=== PATIENT | male | born 1965 | race Caucasian/White ===

== ENCOUNTER 2024-06-30 09:49 | Inpatient (IN) ==
[2024-06-30] MEDS: SODIUM CHLORIDE 0.9% 1,000 ML IV ONE (10:37)
[2024-06-30 10:39] LABS: Base Excess VBG 3.1 mEq/L; HCO3 VBG 30 mmol/L; Oxygen Saturation VBG < 60.0 %; PCO2 VBG 51 mmHg (38-50); PO2 VBG 27 mmHg; pH VBG 7.37 (7.36-7.41)
[2024-06-30] MEDS: ACETAMINOPHEN 1,000 MG/100 ML VIAL IV STA (10:39)
[2024-06-30 10:57] LABS: Basophils # (auto) 0.02 K/uL (0.00-0.20); Basophils % (auto) 0.5 %; Eosinophils # (auto) 0.01 K/uL (0.00-0.50); Eosinophils % (auto) 0.2 %; Hematocrit (blood only) 52.5 % (42.0-52.0); Hemoglobin 17.8 g/dl (14.0-18.0); Immature Granulocytes # (auto) 0.02 K/uL (0.01-0.20); Immature Granulocytes % (auto) 0.5 %; Lymphocytes # (auto) 0.45 K/uL (1.20-3.40); Lymphocytes % (auto) 10.6 %; Mean Corpuscular Hemoglobin 30.2 pg (25.0-34.0); Mean Corpuscular Hgb Conc 33.9 g/dL (32.0-36.0); Mean Platelet Volume 11.3 fL (9.4-12.4); Monocytes % (auto) 14.2 %; Neutrophils # (auto) 3.13 K/uL (1.40-6.50); Platelet Count 219 K/uL (130-400); RDW Standard Deviation 48.8 fL (36.4-46.3); White Blood Count 4.23 K/ul (4.8-10.8)
--- NOTE | 2024-06-30 11:07 | Emergency Department Note ---
Impression & Plan Amyloid heart disease, Heart failure with preserved ejection fraction, Pericardial effusion, Nausea and vomiting, Hypotension, Tachycardia ED Provider Note NAME: KAREN BISHOP AGE: 59 SEX: M : 1965 ARRIVES VIA: Walk-In INFORMANT: [Patient][, ] ED PROVIDER(S): [Ailyn Raya MD] CHIEF COMPLAINT: Abdominal pain, vomiting, confusion HPI: This is a 59-year-old male with history of amyloid heart disease, heart failure presenting for weakness, confusion. Patient started chemotherapy and has had 3 previous rounds. Most recently had his chemotherapy on 06/28, 2 days ago. Has been increasingly weak. Over the course of the night has had 9/10 abdominal pain in his midepigastrium. Reports no chest pain or shortness of breath. Currently with the who states that he is been somewhat confused, lethargic and forgetting based things like his birthday. He is not hallucinating. Otherwise has had nausea with vomiting. Currently provides all history as patient is fatigued. ROS: See above HPI for pertinent positives & negatives. A total of [10] systems reviewed and were otherwise negative. PAST MEDICAL HISTORY: [See Below] PAST SURGICAL HISTORY: [See Below] FAMILY HISTORY: [See Below] SOCIAL HISTORY: [See Below] HOME MEDICATIONS: [See Below] ALLERGIES: [See Below] VITALS: See Below PHYSICAL EXAMINATION: General: Uncomfortable, unwell appearing, weak Head: Normocephalic and atraumatic Eyes: Normal inspection, extraocular muscles intact Ear, nose, throat: Normal external exam Neck: Normal range of motion Respiratory: lungs clear to auscultation bilaterally Cardiovascular: Regular rate/rhythm, no murmur GI: Distended, exquisitely tender in the epigastrium Extremities: nontender, moves all extremities Neuro: The patient awake and alert, appropriately conversive, no focal deficits, symmetric faces Skin: Warm, dry, and intact MEDICAL DECISION MAKING: This is a 59-year-old male with a treatment with heart disease, heart failure presenting for weakness and confusion. Will do screening workup to assess for sepsis, pancreatitis, internal process such as appendicitis, cholecystitis, SBO, gastroenteritis. -ECG independently interpreted by me with sinus tachycardia rate of 120, left axis deviation, [normal [place]], [normal QRS], [normal QTc], no ST segment elevations consistent with STEMI criteria, T wave inversion the lateral leads -Blood work returns with no subacute leukocytosis. No anemia. VBG is 7.37/51. Electrolytes fairly within normal limits. Lactic acid 2.1. -Troponin elevated at 131.5 -Patient given fluids, 1 L however will be cautious as patient does have body wide anasarca on CT as below -CT chest, abdomen/pelvis reveals moderate bilateral pleural effusions with lower lobe atelectasis, as well as moderate pericardial effusion. Anasarca. Otherwise urinary bladder wall thickening, nonspecific -As patient is tachycardic, will give ceftriaxone while awaiting urine -Patient required mission at this time for his tachycardia, weakness, anasarca, confusion -Discussed care with Dr. Blackwood for admission Differential diagnosis: Sepsis, pneumonia, dehydration, tumor lysis syndrome, URI Independent History obtained from: Diagnostics interpreted by me: ECG: See above Cardiac Monitoring: An order was placed for continuous cardiac monitoring. The monitor shows a rate of 105 with sinus rhythm. Past Med/Surg History Problem List (Updated 06/30/24 @ 17:36 by Ailyn Raya MD) Tachycardia (Acute) Hypotension (Acute) Nausea and vomiting (Acute) Pericardial effusion (Acute) Heart failure with preserved ejection fraction (Acute) Amyloid heart disease (Acute) Obstructive sleep apnea Hypertension Gout Heart disease Paraproteinemia Pleural effusion Abnormal PFT Pulmonary nodule Medical History Adrenal nodule Nephrolithiasis Surgical History Hx of biopsy (05/29/24) H/O knee surgery (~1999) H/O cardiac catheterization History of thoracentesis Family History Grandfather Cancer Aunt Cancer Diabetes Uncle Cancer Diabetes Father Cancer Hypertension Mother Hypertension Stroke Denies family history of Kidney disease Social History Smoking Status: Former smoker Hx Alcohol Use: Yes Alcohol type: beer Alcohol Intake Frequency: Monthly or Less Hx Substance Use: No Preferred Language: Citizen Of [place] Communication Ability: Effective Web Interface Developer Required: No Beliefs That Will Affect Care: None marital status: Current Living Situation: Spouse current occupational status: employed 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 Feels Safe at Home: Yes Diet: regular during the past year weight has: decreased > 10 lbs Allergies Allergies Allergy/AdvReac Type Severity Reaction Status Date / Time spironolactone AdvReac Swelling Verified 06/19/24 08:46 of Lip/Tongue/Throat Home Meds Home Medications Medication Instructions Recorded Confirmed potassium chloride 20 mEq 40 meq PO BID 05/08/24 06/30/24 tablet,extended release(part/cryst) allopurinol 100 mg tablet 300 mg PO DAILY 06/19/24 06/30/24 empagliflozin 10 mg tablet 10 mg PO DAILY 06/19/24 06/30/24 (Jardiance) eplerenone 50 mg tablet 50 mg PO DAILY 06/19/24 06/30/24 omeprazole 20 mg capsule,delayed 20 mg PO DAILY Heartburn 06/19/24 06/30/24 release torsemide 100 mg tablet 100 mg PO DAILY 06/19/24 06/30/24 diphenoxylate-atropine 2.5 1 tab PO Q6H PRN Diarrhea 06/30/24 06/30/24 mg-0.025 mg tablet valacyclovir 500 mg tablet 500 mg PO BID 06/30/24 06/30/24 Results & Data (ED) Vital Signs Vital Signs - 24 hr 06/30/24 09:50 06/30/24 09:56 06/30/24 10:00 Temperature 36.5 C Temperature Source Temporal Artery Scan Pulse Rate 127 H 113 H Pulse Rate from SpO2 Sensor Pulse Rhythm Regular Respiratory Rate 18 12 Blood Pressure 99/69 L 110/82 Blood Pressure Mean 79 90 Pulse Oximetry 97 94 Oxygen Delivery Method Room Air Sepsis Recent Fever Within 48 Hours No Sepsis New/Unexplained Change in Mental Status N/A Sepsis Action Taken by Nursing Physician Notified 06/30/24 10:03 06/30/24 10:31 06/30/24 11:57 Temperature Temperature Source Pulse Rate 105 H 109 H 117 H Pulse Rate from SpO2 Sensor 121 H 116 H Pulse Rhythm Respiratory Rate 16 21 Blood Pressure Blood Pressure Mean Pulse Oximetry 97 94 Oxygen Delivery Method Room Air Room Air Sepsis Recent Fever Within 48 Hours Sepsis New/Unexplained Change in Mental Status Sepsis Action Taken by Nursing 06/30/24 12:00 06/30/24 13:00 06/30/24 13:03 Temperature Temperature Source Pulse Rate 111 H Pulse Rate from SpO2 Sensor 111 H Pulse Rhythm Respiratory Rate 14 Blood Pressure 96/65 L 87/73 L Blood Pressure Mean 72 78 Pulse Oximetry 92 Oxygen Delivery Method Room Air Sepsis Recent Fever Within 48 Hours Sepsis New/Unexplained Change in Mental Status Sepsis Action Taken by Nursing Laboratory Data 06/30/24 10:20 06/30/24 10:20 Lab Results 06/30/24 06/30/24 06/30/24 Range/Units 10:18 10:20 10:25 WBC 4.23 L (4.8-10.8) K/ul RBC 5.90 (4.70-6.10) M/uL Hgb 17.8 (14.0-18.0) g/dl Hct 52.5 H (42.0-52.0) % MCV 89.0 (80.0-100.0) fL MCH 30.2 (25.0-34.0) pg MCHC 33.9 (32.0-36.0) g/dL RDW Std Deviation 48.8 H (36.4-46.3) fL RDW Coeff of Raul 16.0 H (11.5-14.5) % Plt Count 219 (130-400) K/uL MPV 11.3 (9.4-12.4) fL Immature Gran % (Auto) 0.5 % Neut % (Auto) 74.0 % Lymph % (Auto) 10.6 % Union % (Auto) 14.2 % Eos % (Auto) 0.2 % Baso % (Auto) 0.5 % Neut # (Auto) 3.13 (1.40-6.50) K/uL Lymph # (Auto) 0.45 L (1.20-3.40) K/uL Union # (Auto) 0.60 H (0.11-0.59) K/uL Eos # (Auto) 0.01 (0.00-0.50) K/uL Baso # (Auto) 0.02 (0.00-0.20) K/uL Immature Gran # (Auto) 0.02 (0.01-0.20) K/uL VBG pH (7.36-7.41) VBG pCO2 (38-50) mmHg VBG pO2 mmHg VBG HCO3 mmol/L VBG O2 Saturation % VBG Base Excess mEq/L Sodium 135 L (136-145) mmol/L Potassium 4.4 (3.5-5.1) mmol/L Chloride 96 L (98-107) mmol/L Carbon Dioxide 30 (21-32) mmol/L Anion Gap 9 (3-11) BUN 43 H (6-23) mg/dl Creatinine 1.28 (0.6-1.4) mg/dl Est Cr Clr Drug Dosing Not Reportable eGFR 64.47 BUN/Creatinine Ratio 33.6 H (10-20) Glucose 121 H (70-99(Fasting)) mg/dl Lactate 2.1 H* (0.4-2.0) mmol/L Uric Acid 4.7 (2.6-7.2) mg/dl Calcium 8.9 (8.6-10.3) mg/dl Magnesium 1.7 (1.7-2.4) mg/dl Total Bilirubin 0.6 (0.2-1.0) mg/dl AST 15 (13-39) U/L ALT 15 (7-52) U/L Alkaline Phosphatase 98 (34-104) U/L Troponin I High Sens 131.5 H* (0-20) pg/ml B-Natriuretic Peptide 757 H (0-100) pg/ml Total Protein 5.3 L (6.0-8.3) gm/dl Albumin 3.2 L (3.4-5.0) gm/dl Globulin 2.1 L (2.5-4.0) gm/dl Albumin/Globulin Ratio 1.5 (0.9-2) Lipase 37 (11-82) U/L Procalcitonin 0.52 H (0-0.5) ng/ml 06/30/24 06/30/24 Range/Units 10:26 12:07 WBC (4.8-10.8) K/ul RBC (4.70-6.10) M/uL Hgb (14.0-18.0) g/dl Hct (42.0-52.0) % MCV (80.0-100.0) fL MCH (25.0-34.0) pg MCHC (32.0-36.0) g/dL RDW Std Deviation (36.4-46.3) fL RDW Coeff of Raul (11.5-14.5) % Plt Count (130-400) K/uL MPV (9.4-12.4) fL Immature Gran % (Auto) % Neut % (Auto) % Lymph % (Auto) % Union % (Auto) % Eos % (Auto) % Baso % (Auto) % Neut # (Auto) (1.40-6.50) K/uL Lymph # (Auto) (1.20-3.40) K/uL Union # (Auto) (0.11-0.59) K/uL Eos # (Auto) (0.00-0.50) K/uL Baso # (Auto) (0.00-0.20) K/uL Immature Gran # (Auto) (0.01-0.20) K/uL VBG pH 7.37 (7.36-7.41) VBG pCO2 51 H (38-50) mmHg VBG pO2 27 mmHg VBG HCO3 30 mmol/L VBG O2 Saturation < 60.0 % VBG Base Excess 3.1 mEq/L Sodium (136-145) mmol/L Potassium (3.5-5.1) mmol/L Chloride (98-107) mmol/L Carbon Dioxide (21-32) mmol/L Anion Gap (3-11) BUN (6-23) mg/dl Creatinine (0.6-1.4) mg/dl Est Cr Clr Drug Dosing eGFR BUN/Creatinine Ratio (10-20) Glucose (70-99(Fasting)) mg/dl Lactate (0.4-2.0) mmol/L Uric Acid (2.6-7.2) mg/dl Calcium (8.6-10.3) mg/dl Magnesium (1.7-2.4) mg/dl Total Bilirubin (0.2-1.0) mg/dl AST (13-39) U/L ALT (7-52) U/L Alkaline Phosphatase (34-104) U/L Troponin I High Sens 112.2 H* (0-20) pg/ml B-Natriuretic Peptide (0-100) pg/ml Total Protein (6.0-8.3) gm/dl Albumin (3.4-5.0) gm/dl Globulin (2.5-4.0) gm/dl Albumin/Globulin Ratio (0.9-2) Lipase (11-82) U/L Procalcitonin (0-0.5) ng/ml Administered Medications Discontinued Medications Hydromorphone HCl (Hydromorphone Inj 0.5 Mg/0.5 Ml Syr) 0.5 mg IV NOW STA Stop: 06/30/24 11:53 Last Admin: 06/30/24 12:02 Dose: 0.5 mg Documented By: ROSEANNE Sodium Chloride (Nss) 1,000 mls @ 999 mls/hr IV .Q1H1M ONE Stop: 06/30/24 10:58 Last Infusion: 06/30/24 14:41 Dose: Infused Documented By: Admin: 06/30/24 10:37 Dose: 999 mls/hr Documented By: TOMMY Acetaminophen (Ofirmev) 1,000 mg in 100 mls @ 400 mls/hr IV NOW STA Stop: 06/30/24 10:38 Last Infusion: 06/30/24 11:22 Dose: Infused Documented By: Admin: 06/30/24 10:39 Dose: 400 mls/hr Documented By: TOMMY Ceftriaxone Sodium (Rocephin) 2,000 mg in 50 mls @ 100 mls/hr IV NOW STA Stop: 06/30/24 13:48 Last Infusion: 06/30/24 15:07 Dose: Infused Documented By: Admin: 06/30/24 14:26 Dose: 100 mls/hr Documented By: TOMMY Pantoprazole Sodium (Protonix) 40 mg in 10 mls @ 5 mls/min IV NOW ONE Stop: 06/30/24 13:57 Last Admin: 06/30/24 14:26 Dose: 5 mls/min Documented By: TOMMY Famotidine (Pepcid 20mg Iv Push) 20 mg in 5 mls @ 2.5 mls/min IV NOW STA Stop: 06/30/24 13:57 Last Admin: 06/30/24 14:26 Dose: 2.5 mls/min Documented By: TOMMY Ioversol (Optiray 320 100ml) 94 ml IV ONCE ONE Stop: 06/30/24 11:39 Last Admin: 06/30/24 11:40 Dose: 94 ml Documented By: DARRIN Miscellaneous (Patient's Height &/Or Weight Needed) 1 each N/A Q2H STA Stop: 06/30/24 16:21 Last Admin: 06/30/24 16:23 Dose: 1 each Documented By: VIOLET Ondansetron HCl (Ondansetron Inj 2 Mg/Ml 2 Ml Vial) 4 mg IV NOW STA Stop: 06/30/24 11:52 Last Admin: 06/30/24 12:02 Dose: 4 mg Documented By: ROSEANNE Ondansetron HCl (Ondansetron Inj 2 Mg/Ml 2 Ml Vial) 4 mg IV NOW STA Stop: 06/30/24 13:59 Last Admin: 06/30/24 14:26 Dose: 4 mg Documented By: TOMMY Imaging Data Radiologist's Impression: Abdomen/Pelvis CT 06/30/24 10:[address] WITH IV CONTRAST HISTORY: Acute nausea and vomiting mid abd pain, on chemo, confusion TECHNIQUE: Multiaxial CT images of the abdomen and pelvis were performed following the IV administration of 94 cc of Optiray, A dose lowering technique was utilized adhering to the principles of ALARA. COMPARISON STUDY: Chest CT of same day, CT abdomen 05/28/2024, CT chest 03/07/2024 FINDINGS: Abnormal enhancement and thickening of the left ventricular myocardium. Moderate-sized pericardial effusion measures up to 2 cm. Moderate layering pleural effusions with dependent bibasilar consolidation. Intralobular septal thickening. No pneumatosis or pneumoperitoneum. Heterogeneous enhancement of the spleen. Unremarkable pancreas. Left adrenal gland is normal. Chronic nodular thickening of the right adrenal gland measuring up to 2.3 cm with unchanged hyperdensities/calcifications. There are a few hepatic cysts noted. Patent portal vein. No hydronephrosis. Exophytic cyst of the superior pole right kidney. Decompressed bladder with wall thickening. Prostatomegaly. Atherosclerosis of the aorta without aneurysm. Nonspecific distal esophageal wall thickening. Anasarca with small volume of abdominopelvic ascites. Colonic diverticulosis with moderate fecal retention. Normal appendix. Mesenteric lymphadenopathy includes a 2.2 x 1.6 cm lymph node on image 199. No acute fracture. 2 cm fluid attenuating focus in the subcutaneous tissues of the anterior abdominal wall on image 321 may represent a sebaceous cyst. IMPRESSION: 1. Abnormal appearance of the myocardium compatible with the patient's known cardiac amyloidosis. 2. Moderate pericardial and pleural effusions with pulmonary edema, bibasilar atelectasis, anasarca with trace abdominopelvic ascites. 3. Nonspecific mesenteric lymphadenopathy. 4. Nondilated fluid-filled loops of small bowel are noted. No bowel obstruction or bowel wall thickening. 5. Nonspecific heterogeneous enhancement of the spleen. 6. Nonspecific urinary bladder wall thickening. Correlate with urinalysis. ACT 112: Negative or not required by law. The above report was generated using voice recognition software. It may contain grammatical, syntax or spelling errors. Electronically signed by: Hernan Levy M.D. 06/30/2024 1:[address] 06/30/24 11:[address] WITH CONTRAST CT DOSE: 2401.89 mGy.cm HISTORY: SOB, CHF TECHNIQUE: Multiaxial CT images of the chest were performed following the IV administration of 90 cc of Optiray. A dose lowering technique was utilized adhering to the principles of ALARA. COMPARISON STUDY: None FINDINGS: There are moderate dependent bilateral pleural effusions with moderate adjacent compressive atelectasis at bilateral lower lung lobes. No pneumothorax. No significant pulmonary nodule seen. There is mild septal thickening consistent with mild pulmonary edema. No enlarged adenopathy. There is a trace pericardial effusion. There is mild anasarca. No acute osseous findings. No pulmonary embolism. No thoracic aortic dissection or aneurysm. IMPRESSION: Moderate bilateral pleural effusions with adjacent lower lobe compressive atelectasis. Otherwise as described. ACT 112: Negative or not required by law. Electronically signed by: Edward Berrios M.D. 06/30/2024 11:59 AM Discharge Plan Visit Data Chief Complaint: Vomiting Stated Complaint: VOMITING, CHEMO PATIENT, FEELS LUMP IN STOMACH ED Provider: Ailyn Raya Discharge Problem: Amyloid heart disease, Heart failure with preserved ejection fraction, Pericardial effusion, Nausea and vomiting, Hypotension, Tachycardia Patient Disposition: Admitted As Inpatient Discharge Instructions Interventions: ED Discharge Assessment Last Done: 06/30/24 15:50
[2024-06-30 11:29] LABS: Alanine Aminotransferase 15 U/L (7-52); Albumin Globulin Ratio 1.5 (0.9-2); Albumin Level 3.2 gm/dl (3.4-5.0); Alkaline Phosphatase 98 U/L (34-104); Anion Gap 9 (3-11); Aspartate Aminotransferase 15 U/L (13-39); BUN Creatinine Ratio 33.6 (10-20); Bilirubin,Total 0.6 mg/dl (0.2-1.0); Blood Urea Nitrogen 43 mg/dl (6-23); Calcium 8.9 mg/dl (8.6-10.3); Carbon Dioxide 30 mmol/L (21-32); Chloride 96 mmol/L (98-107); Globulin 2.1 gm/dl (2.5-4.0); Glucose 121 mg/dl (70-99(Fasting)); Lipase 37 U/L (11-82); Potassium 4.4 mmol/L (3.5-5.1); Sodium 135 mmol/L (136-145); Total Protein 5.3 gm/dl (6.0-8.3)
[2024-06-30 11:35] LABS: Troponin I High Sensitivity 131.5 pg/ml (0-20)
[2024-06-30] MEDS: OPTIRAY 320 100ml IV ONE (11:40)
--- NOTE | 2024-06-30 12:00 | CT Scan Report ---
CHEST CT WITH CONTRAST CT DOSE: 2401.89 mGy.cm HISTORY: SOB, CHF TECHNIQUE: Multiaxial CT images of the chest were performed following the IV administration of 90 cc of Optiray. A dose lowering technique was utilized adhering to the principles of ALARA. COMPARISON STUDY: None FINDINGS: There are moderate dependent bilateral pleural effusions with moderate adjacent compressive atelectasis at bilateral lower lung lobes. No pneumothorax. No significant pulmonary nodule seen. Th ere is mild septal thickening consistent with mild pulmonary edema. No enlarged adenopathy. There is a trace pericardial effusion. There is mild anasarca. No acute osseous findings. No pulmonary embolis m. No thoracic aortic dissection or aneurysm. IMPRESSION: Moderate bilateral pleural effusions with adjacent lower lobe compressive atelectasis. Ot herwise as described. ACT 112: Negative or not required by law. Electronically signed by: Edward Berrios M.D. 06/30/2024 11:59 AM
[2024-06-30] MEDS: HYDROmorphone INJ 0.5 MG/0.5 ML SYR IV STA (12:02)
[2024-06-30] MEDS: ONDANSETRON INJ 2 MG/ML 2 ML VIAL IV STA ×2 (12:02→14:26)
--- NOTE | 2024-06-30 13:04 | CT Scan Report ---
ABDOMEN AND PELVIS CT WITH IV CONTRAST HISTORY: Acute nausea and vomiting mid abd pain, on chemo, confusion TECHNIQUE: Multiaxial CT images of the abdomen and pelvis were performed following the IV administrat ion of 94 cc of Optiray, A dose lowering technique was utilized adhering to the principles of ALARA. COMPARISON STUDY: Chest CT of same day, CT abdomen 05/28/2024, CT chest 03/07/2024 FINDINGS: Abnormal enhancement and thickening of the left ventricular myocardium. Moderate-sized phyllis cardial effusion measures up to 2 cm. Moderate layering pleural effusions with dependent bibasilar co nsolidation. Intralobular septal thickening. No pneumatosis or pneumoperitoneum. Heterogeneous enhanc ement of the spleen. Unremarkable pancreas. Left adrenal gland is normal. Chronic nodular thickening of the right adrenal gland measuring up to 2.3 cm with unchanged hyperdensities/calcifications. There are a few hepatic cysts noted. Patent portal vein. No hydronephrosis. Exophytic cyst of the superior pole right kidney. Decompressed bladder with wall t hickening. Prostatomegaly. Atherosclerosis of the aorta without aneurysm. Nonspecific distal esophage al wall thickening. Anasarca with small volume of abdominopelvic ascites. Colonic diverticulosis with moderate fecal retention. Normal appendix. Mesenteric lymphadenopathy includes a 2.2 x 1.6 cm lymph node on image 199. No acute fracture. 2 cm fluid attenuating focus in the subcutaneous tissues of the anterior abdominal wall on image 321 may represent a sebaceous cyst. IMPRESSION: 1. Abnormal appearance of the myocardium compatible with the patient's known cardiac amyloidosis. 2. Moderate pericardial and pleural effusions with pulmonary edema, bibasilar atelectasis, anasarca w ith trace abdominopelvic ascites. 3. Nonspecific mesenteric lymphadenopathy. 4. Nondilated fluid-filled loops of small bowel are noted. No bowel obstruction or bowel wall thicken ing. 5. Nonspecific heterogeneous enhancement of the spleen. 6. Nonspecific urinary bladder wall thickening. Correlate with urinalysis. ACT 112: Negative or not required by law. The above report was generated using voice recognition software. It may contain grammatical, syntax o r spelling errors. Electronically signed by: Hernan Levy M.D. 06/30/2024 1:02 PM
--- NOTE | 2024-06-30 13:35 | Electrocardiogram Report ---
Test Reason : Blood Pressure : */* mmHG Vent. 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
--- NOTE | 2024-06-30 13:37 | History & Physical Report ---
Date of Service June 30, 2024 Assessment & Plan (1) Nausea and vomiting: Plan: On discussion with Dr. Mendoza likely secondary to chemotherapy Less likely infection related with procalcitonin pending white blood count 4.23 Start Pantoprazole 40mg IV BID for gastritis/GERD Avoid excessive fluids due to heart failure with amyloidosis Follow up blood culture although low suspicion of infection causing symptoms at this time therefore will not continue antibiotics Biofire negative Stool and c. diff PCR for diarrhea although this is more chronic than acute (2) Heart failure with preserved ejection fraction: Plan: Appears both intravascularly deplete (IVC decreased on POCUS US) but with significant 3rd spacing (anasarca, ascites, pleural effusions) NSS 1L bolus given in the ER Will hold torsemide and eplerenone currently but consult cardiology for advice on when to restart No longer on carvedilol due to hypotension, therefore also unable to tolerate Entresto (3) Amyloid heart disease: Plan: Currently on Audrey-CyBorD chemotherapy (4) Pericardial effusion: Plan: TTE limited to assess for pericardial effusion (5) Hypotension: Plan: Holding torsemide and eplerenone currently, consider restarting tomorrow With cardiac amyloid suspect his systolic blood pressure will continue to run in the 90s at baseline Plan Gout - will get uric acid level and consider reducing allopurinol back to 100mg PO daily VTE Prophylaxis - Lovenox 40mg SQ daily Diet - Low Na, heart healthy, clear liquids Disposition - admit to PCU Admission and Anticipated Discharge Date Admission Date: June 30, 2024 History of Present Illness Chief Complaint: Nausea, vomiting, epigastric pain Primary Care Provider: Evan Gordon is a 59 year old male with recent diagnosis of cardiac amyloidoses and heart failure who presents to the ER with nausea, vomiting and epigastric pain. Symptoms started with last night. Never had anything similar although he does take omeprazole daily for reflux and he currently feels his reflux is much worse. Currently abdominal pain has resolved but severity 9/10 on arrival to the ER. He is currently on chemotherapy for cardiac amyloid on his third dose of Audrey-CyBoD which he had on Wednesday. He has never had a reaction like this to the chemotherapy previously. He has been having chronic diarrhea since February which is no worse than usual. 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 Today he was more foggy headed therefore his decided to bring him to the ER. He was unable to take any of his usual medications this morning. No respiratory or urinary symptoms. No fever or chills. No current antibiotics but he is taking valacyclovir for chronic prophylaxis. They are also questioning why [facility] increased his allopurinol and are questioning whether this should return to his prior 100mg dosing. This is on a background of recently diagnosed heart failure in February and subsequent hospitalization at [facility] with diagnosis of amyloidosis. Total 60-65lb weight loss since February. His feels he has reached his dry weight but unable to get a hold of anyone at [place] to discuss reductions in torsemide/eplerenone etc... They are due to follow up in the heart failure clinic here but have not yet done so. He has also had thoracentesis twice. Allergies Allergy/AdvReac Type Severity Reaction Status Date / Time spironolactone AdvReac Swelling Verified 06/19/24 08:46 of Lip/Tongue/Throat Home Medications Medication Instructions Recorded Confirmed Type potassium chloride 20 mEq 40 meq PO BID 05/08/24 06/30/24 History tablet,extended release(part/cryst) allopurinol 100 mg tablet 300 mg PO DAILY 06/19/24 06/30/24 History empagliflozin 10 mg tablet 10 mg PO DAILY 06/19/24 06/30/24 History (Jardiance) eplerenone 50 mg tablet 50 mg PO DAILY 06/19/24 06/30/24 History omeprazole 20 mg capsule,delayed 20 mg PO DAILY Heartburn 06/19/24 06/30/24 History release torsemide 100 mg tablet 100 mg PO DAILY 06/19/24 06/30/24 History diphenoxylate-atropine 2.5 1 tab PO Q6H PRN Diarrhea 06/30/24 06/30/24 History mg-0.025 mg tablet valacyclovir 500 mg tablet 500 mg PO BID 06/30/24 06/30/24 History Past Med/Surg History Problem List (Updated 07/01/24 @ 07:20 by Brown Blackwood MD) Tachycardia (Acute) Hypotension (Acute) Nausea and vomiting (Acute) Pericardial effusion (Acute) Heart failure with preserved ejection fraction (Acute) Amyloid heart disease (Acute) Obstructive sleep apnea Hypertension Gout Heart disease Paraproteinemia Pleural effusion Abnormal PFT Pulmonary nodule Medical History Adrenal nodule Nephrolithiasis Surgical History Hx of biopsy (05/29/24) H/O knee surgery (~1999) H/O cardiac catheterization History of thoracentesis Family History Grandfather Cancer Aunt Cancer Diabetes Uncle Cancer Diabetes Father Cancer Hypertension Mother Hypertension Stroke Denies family history of Kidney disease Social History Smoking Status: Never smoker Second Hand Exposure: No; Do You Dip or Chew Tobacco: No; Tobacco Cessation Education Requested by Patient: No Hx Alcohol Use: No Hx Substance Use: No Preferred Language: Micronesian Communication Ability: Effective Manager Required: No Beliefs That Will Affect Care: None marital status: Current Living Situation: Spouse current occupational status: employed 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 Other Information That Helps Us Care for You: No Feels Safe at Home: Yes Safety Concerns: Feels Safe At This Time Diet: regular during the past year weight has: decreased > 10 lbs Assistive Devices: None Review of Systems Review of Systems: All systems reviewed & are unremarkable except as noted in HPI & below Physical Exam Constitutional: WD/WN, vitals as above ENMT: external ear and nose normal, oropharynx normal Respiratory: normal respiratory effort, lungs clear to auscultation Cardiovascular: Rate/Rhythm: regular rate and regular rhythm Heart Sounds: no murmur Extremities: normal capillary refill and + pedal edema (2+ b/l equal); no calf tenderness Gastrointestinal (Abdomen): Inspection/Auscultation: abdomen normal to inspection; abdomen not distended Percussion/Palpation: + abdomen tender (epigastric) and abdomen soft; no guarding and abdomen not rigid Skin: Rash on abdomen from prior heparin injections from [facility] Neurologic: moves all extremities and awake; not confused Psychiatric: A+Ox3, euthymic affect Results & Data Results & Data Vital Signs (Past 12 Hours) Vital Signs Temp Pulse Resp BP Pulse Ox O2 Del Method 06/30/24 13:03 111 H 14 92 Room Air 06/30/24 13:00 87/73 L 06/30/24 12:00 96/65 L 06/30/24 11:57 117 H 21 94 Room Air 06/30/24 10:31 109 H 06/30/24 10:03 105 H 16 97 Room Air 06/30/24 10:00 110/82 06/30/24 09:56 113 H 12 94 Room Air 06/30/24 09:50 36.5 C 127 H 18 99/69 L 97 Laboratory Results Abnormal lab results 06/30/24 06/30/24 06/30/24 Range/Units 10:18 10:20 10:26 WBC 4.23 L (4.8-10.8) K/ul Hct 52.5 H (42.0-52.0) % RDW Std Deviation 48.8 H (36.4-46.3) fL RDW Coeff of Raul 16.0 H (11.5-14.5) % Lymph # (Auto) 0.45 L (1.20-3.40) K/uL Dade # (Auto) 0.60 H (0.11-0.59) K/uL VBG pCO2 51 H (38-50) mmHg Sodium 135 L (136-145) mmol/L Chloride 96 L (98-107) mmol/L BUN 43 H (6-23) mg/dl BUN/Creatinine Ratio 33.6 H (10-20) Glucose 121 H (70-99(Fasting)) mg/dl Lactate 2.1 H* (0.4-2.0) mmol/L Troponin I High Sens 131.5 H* (0-20) pg/ml Total Protein 5.3 L (6.0-8.3) gm/dl Albumin 3.2 L (3.4-5.0) gm/dl Globulin 2.1 L (2.5-4.0) gm/dl 06/30/24 Range/Units 12:07 WBC (4.8-10.8) K/ul Hct (42.0-52.0) % RDW Std Deviation (36.4-46.3) fL RDW Coeff of Raul (11.5-14.5) % Lymph # (Auto) (1.20-3.40) K/uL Dade # (Auto) (0.11-0.59) K/uL VBG pCO2 (38-50) mmHg Sodium (136-145) mmol/L Chloride (98-107) mmol/L BUN (6-23) mg/dl BUN/Creatinine Ratio (10-20) Glucose (70-99(Fasting)) mg/dl Lactate (0.4-2.0) mmol/L Troponin I High Sens 112.2 H* (0-20) pg/ml Total Protein (6.0-8.3) gm/dl Albumin (3.4-5.0) gm/dl Globulin (2.5-4.0) gm/dl Diagnostic Findings CHEST CT WITH CONTRAST CT DOSE: 2401.89 mGy.cm HISTORY: SOB, CHF TECHNIQUE: Multiaxial CT images of the chest were performed following the IV administration of 90 cc of Optiray. A dose lowering technique was utilized adhering to the principles of ALARA. COMPARISON STUDY: None FINDINGS: There are moderate dependent bilateral pleural effusions with moderate adjacent compressive atelectasis at bilateral lower lung lobes. No pneumothorax. No significant pulmonary nodule seen. There is mild septal thickening consistent with mild pulmonary edema. No enlarged adenopathy. There is a trace pericardial effusion. There is mild anasarca. No acute osseous findings. No pulmonary embolism. No thoracic aortic dissection or aneurysm. IMPRESSION: Moderate bilateral pleural effusions with adjacent lower lobe compressive atelectasis. Otherwise as described. ABDOMEN AND PELVIS CT WITH IV CONTRAST HISTORY: Acute nausea and vomiting mid abd pain, on chemo, confusion TECHNIQUE: Multiaxial CT images of the abdomen and pelvis were performed following the IV administration of 94 cc of Optiray, A dose lowering technique was utilized adhering to the principles of ALARA. COMPARISON STUDY: Chest CT of same day, CT abdomen 05/28/2024, CT chest 03/07/2024 FINDINGS: Abnormal enhancement and thickening of the left ventricular myocardium. Moderate-sized pericardial effusion measures up to 2 cm. Moderate layering pleural effusions with dependent bibasilar consolidation. Intralobular septal thickening. No pneumatosis or pneumoperitoneum. Heterogeneous enhancement of the spleen. Unremarkable pancreas. Left adrenal gland is normal. Chronic nodular thickening of the right adrenal gland measuring up to 2.3 cm with unchanged hyperdensities/calcifications. There are a few hepatic cysts noted. Patent portal vein. No hydronephrosis. Exophytic cyst of the superior pole right kidney. Decompressed bladder with wall thickening. Prostatomegaly. Atherosclerosis of th e aorta without aneurysm. Nonspecific distal esophageal wall thickening. Anasarca with small volume of abdominopelvic ascites. Colonic diverticulosis with moderate fecal retention. Normal appendix. Mesenteric lymphadenopathy includes a 2.2 x 1.6 cm lymph node on image 199. No acute fracture. 2 cm fluid attenuating focus in the subcutaneous tissues of the anterior abdominal wall on image 321 may represent a sebaceous cyst. IMPRESSION: 1. Abnormal appearance of the myocardium compatible with the patient's known cardiac amyloidosis. 2. Moderate pericardial and pleural effusions with pulmonary edema, bibasilar atelectasis, anasarca with trace abdominopelvic ascites. 3. Nonspecific mesenteric lymphadenopathy. 4. Nondilated fluid-filled loops of small bowel are noted. No bowel obstruction or bowel wall thickening. 5. Nonspecific heterogeneous enhancement of the spleen. 6. Nonspecific urinary bladder wall thickening. Correlate with urinalysis. Medications Administered ER medications given: Normal saline 1 L bolus Acetaminophen 1000 mg IV Ondansetron 4 mg IV Dilaudid 0.5 mg IV Ceftriaxone 2000 mg IV ECG Rate (beats per minute): 120 Rhythm: sinus tachycardia Findings: + left axis deviation Comparison ECG Date: from (June 19, 2024) Change: the following changes noted (Questionable change in initial forces of anterior septal leads, nonspecific T wave abnormality no longer evident in anterior leads) Code Status & VTE Plan Code Status Full VTE Prophylaxis Plan VTE Prophylaxis will be ordered: Yes PG Care Time/CCT Total # of Minutes Spent Total Time Spent with Patient: Total time spent is greater than 50% in coordination of care (as documented) at patient's floor/unit and/or counseling patient: Coding Level of Care Code 92787 INT INP/OBS CARE 3/75MIN Diagnoses Nausea and vomiting R11.2 Chronic heart failure with preserved ejection fraction I50.32 Heart failure chronicity: chronic Amyloid heart disease E85.4; I43 Pericardial effusion I31.39 Hypotension I95.9 (2) Heart failure with preserved ejection fraction Heart failure chronicity: chronic Qualified Code(s): I50.32 - Chronic diastolic (congestive) heart failure
[2024-06-30 13:50] LABS: Magnesium 1.7 mg/dl (1.7-2.4)
[2024-06-30 14:25] LABS: Uric Acid 4.7 mg/dl (2.6-7.2)
[2024-06-30] MEDS: FAMOTIDINE 20MG IV PUSH 20 MG/5 ML SYR IV STA (14:26)
[2024-06-30] MEDS: cefTRIAXone SODIUM 2,000 MG/50 ML BAG IV STA (14:26)
[2024-06-30] MEDS: PANTOprazole 40 MG/10 ML SYR IV ONE (14:26)
--- NOTE | 2024-06-30 16:20 | XCELERA ---
[id number]
[2024-06-30] MEDS: Patient's HEIGHT &/or WEIGHT Needed STA (16:23)
[2024-06-30 16:24] LABS: Appearance Urine Clear (Clear); Bacteria Urine Automated None Seen (None Seen); Bilirubin Urine Negative (Negative); Blood Urine Negative (Negative); Color Urine Yellow; Epithelial Cell Urine Auto 0-2 /hpf (0-2); Glucose Urine UA 2+ (Negative); Ketones Urine Negative (Negative); Leukocyte Esterase Urine Negative (Negative); Nitrite Urine Negative (Negative); Protein Urine Trace (Negative); RBC Urine Automated 0-2 /hpf (0-2); Specific Gravity Urine 1.034 (1.000-1.030); Urobilinogen Urine Negative (Negative); WBC Urine Automated 0-5 /hpf (0-5); pH Urine 5.5 (4.5-7.5)
[2024-06-30 16:30] LABS: Adenovirus PCR Not Detected (NotDetected); Bordetella parapertussis PCR Not Detected (NotDetected); Bordetella pertussis PCR Not Detected (NotDetected); Chlamydia pneumoniae PCR Not Detected (NotDetected); Coronavirus 229E PCR Not Detected (NotDetected); Coronavirus CoV-2 (COVID19)PCR Not Detected (NotDetected); Coronavirus HKU1 PCR Not Detected (NotDetected); Coronavirus NL63 PCR Not Detected (NotDetected); Coronavirus OC43PCR Not Detected (NotDetected); Human Metapneumovirus PCR Not Detected (NotDetected); Influenza A PCR Not Detected (NotDetected); Influenza B PCR Not Detected (NotDetected); Mycoplasma pneumoniae PCR Not Detected (NotDetected); Parainfluenza Virus 1 PCR Not Detected (NotDetected); Parainfluenza Virus 2 PCR Not Detected (NotDetected); Parainfluenza Virus 3 PCR Not Detected (NotDetected); Parainfluenza Virus 4 PCR Not Detected (NotDetected); Respiratory Syncytial VirusPCR Not Detected (NotDetected); Rhinovirus/Enterovirus PCR Not Detected (NotDetected)
[2024-06-30] MEDS: ONDANSETRON INJ 2 MG/ML 2 ML VIAL IV PRN (19:45)
[2024-06-30] MEDS ORDERED: DIPHENOXYLATE/ATROPINE 2.5/0.025MG TAB PO PRN (20:23)
[2024-06-30] MEDS ORDERED: valACYclovir HCL 500 MG TABLET PO SCH (21:00)
[2024-06-30] MEDS: PANTOprazole 40 MG/10 ML SYR IV SCH (21:32)
[2024-06-30] MEDS: PROCHLORPERAZINE 10 MG in SYRINGE 8 ML IV PRN (21:32)
[2024-07-01 07:41] LABS: Hematocrit (blood only) 40.2 % (42.0-52.0); Hemoglobin 13.6 g/dl (14.0-18.0); Mean Corpuscular Hemoglobin 29.8 pg (25.0-34.0); Mean Corpuscular Hgb Conc 33.8 g/dL (32.0-36.0); Mean Platelet Volume 11.5 fL (9.4-12.4); Platelet Count 146 K/uL (130-400); RDW Coefficient of Variation 15.3 % (11.5-14.5); RDW Standard Deviation 46.8 fL (36.4-46.3); Red Blood Count 4.57 M/uL (4.70-6.10); White Blood Count 3.47 K/ul (4.8-10.8)
[2024-07-01 07:58] LABS: Albumin Globulin Ratio 1.4 (0.9-2); Albumin Level 2.3 gm/dl (3.4-5.0); BUN Creatinine Ratio 32.4 (10-20); Bilirubin,Total 0.5 mg/dl (0.2-1.0); Creatinine Clr Calc Pharmacy 87.7 ml/min; Globulin 1.7 gm/dl (2.5-4.0); Magnesium 1.6 mg/dl (1.7-2.4); Phosphorus 3.9 mg/dl (2.5-4.9); Potassium 4.3 mmol/L (3.5-5.1)
[2024-07-01 08:00] LABS: Basophils # (auto) 0.02 K/uL (0.00-0.20); Basophils % (auto) 0.6 %; Eosinophils # (auto) 0.02 K/uL (0.00-0.50); Eosinophils % (auto) 0.6 %; Immature Granulocytes # (auto) 0.02 K/uL (0.01-0.20); Immature Granulocytes % (auto) 0.6 %; Lymphocytes # (auto) 0.62 K/uL (1.20-3.40); Lymphocytes % (auto) 17.9 %; Monocytes # (auto) 0.57 K/uL (0.11-0.59); Monocytes % (auto) 16.4 %; Neutrophils # (auto) 2.22 K/uL (1.40-6.50); Neutrophils % (auto) 63.9 %; Toxic Vacuolation 1+
[2024-07-01 08:50] VITALS: BP 110/75; RESP 19; TEMP 97.5; O2SAT 99
[2024-07-01] MEDS: ENOXAPARIN INJ 40 MG/0.4 ML SYR SQ SCH (10:34)
--- NOTE | 2024-07-01 10:44 | Discharge Summary ---
Discharge Summary Date of Service July 01, 2024 Principal Dx & Hospital Course #1 = Principal Diagnosis (1) Nausea and vomiting: RESOLVED on 07/01/2024. Patient reported 1 episode of watery, non-bloody, non-oily diarrhea on (06/29/2024) and 4 episodes of bilious emesis without hematemesis on Wednesday (06/30/2024), at home, prior to arrival at [facility] ER (06/30/2024,10:00am). Etiology of diarrhea and vomiting remains unclear, with possible contribution from patient's Daratumumab-CyBorD chemotherapy regimen (first treatment occurred on 06/08/2024, [facility]; third treatment occurred on 06/28/2024 with [facility] Heme-Onc Dr. Juan Mendoza; next/fourth treatment is scheduled for 07/05/2024 with [facility] Heme-Onc Dr. Juan Mendoza) for treating his multiple myeloma [which was formally diagnosed on 06/06/2024 via bone marrow biopsy (which "showed kappa monotypic plasma cell neoplasm involving 20-25% of the marrow cellularity. Normocellular marrow (around 50%) with tri-lineage hematopoesis. There was focal positivity for amyloid deposits by Congo red stains. CD 138 showed increased plasma cell involving 20-25% of marrow cellularity. Rare lymphoid aggregates are composed of more CD3+ T cells than CD20+ B cells, reactive process. Cytogenetics pending. Endomyocardial biopsy (06/06/2024) with cardiac amyloidosis, kappa subtype and stained positive with Congo red stain as well. Overall impression is MM/[employer] ([place]) Amyloidosis, stage IIIB, based on NT pro-BNP > 17,000 and HST > 100)(as reported by [facility] Heme-Onc Fellow Dr. Lucero Wild))]; patient now sees [facility] Heme-Onc Dr. Juan Mendoza to manage his multiple myeloma with cardiac amyloidosis. Patient reports no diarrhea or vomiting at all after being admitted to [facility] on 06/30/2024. Patient reports that his generalized abdominal pain which brought him to [facility] ER on 06/30/2024 has completely resolved on 07/01/2024. Patient also reports no nausea on 07/01/2024 with zofran 4mg IV q4 prn (06/30/2024, 4:08pm) and prochlorperazine 10mg IV q6 (06/30/2024, 5:39pm) and 1 liter of 0.9% NS @ 999 mL/hr (06/30/2024, 9:58am)(to treat dehydration from N/V at home). Patient wants to go home now on 07/01/2024 as he has no complaints. Patient was subsequently discharged back to his home on 07/01/2024 with no prescriptions for either zofran or prochlorperazine as patient states that he already has a prescription for zofran waiting to be picked up today. Patient also reports that he will continue taking his home-scheduled omeprazole 20mg PO daily, in lieu of pantoprazole 40mg IV bid (06/30/2024, 9:00pm) that patient received while in [facility]. Patient was also advised to stop taking his home-scheduled allopurinol 300mg PO daily as patient has not had an acute gouty attack of his right hallux in several years, recognizing the allopurinol can cause dyspepsia. Patient was also advised to hold off resuming his home-scheduled eplerenone 50mg PO daily and home-scheduled torsemide 100mg PO daily until he sees his CHF specialist, Ms. Yvette Rodriguez PA-C, on Wednesday (07/03/2024), as already scheduled. Patient reports that he will comply with all of the recommendations above. (2) Heart failure with preserved ejection fraction: Chronic diastolic CHF with preserved LVEF > 70%, normal LV wall motion, RV normal size and systolic function; and LA moderately dilated (as reported on 06/30/2024, 2:35pm TTE, CARDS Dr. Mikey Lara). Patient does NOT have an acute exacerbation of his chronic diastolic CHF while in [facility] from 06/30/2024 to 07/01/2024; specifically, patient reports no weight gain, paroxysmal nocturnal dyspnea at rest or with exertion, orthopnea, or platypnea to suggest an acute exacerbation of his chronic diastolic CHF while in [facility] from 06/30/2024 to 07/01/2024. In fact, patient appeared to be dehydrated clinically from his 1 episode of watery, non-bloody, non-oily diarrhea on (06/29/2024) and 4 episodes of bilious emesis without hematemesis on Wednesday (06/30/2024), at home, prior to arrival at [facility] ER (06/30/2024,10:00am). Patient did not receive his home- scheduled eplerenone 50mg PO daily and home-scheduled torsemide 100mg PO daily while in [facility] from 06/30/2024 to 07/01/2024, given the potential for either/both medications to dehydrate the patient further while in [facility] from 06/30/2024 to 07/01/2024. Patient was also advised to hold off resuming his home-scheduled eplerenone 50mg PO daily and home-scheduled torsemide 100mg PO daily until he sees his CHF specialist, Ms. Yvette Rodriguez PA-C, on Wednesday (07/03/2024), as already scheduled. Of note, patient reports that he is no longer taking carvedilol due to chronic hypotension, and consequently, patient is also unable to tolerate sacubitril- valsartan (e.g., Entresto). (3) Amyloid heart disease: Patient currently receives Daratumumab-CyBorD chemotherapy (first treatment occurred on 06/08/2024, [facility]; third treatment occurred on 06/28/2024 with [facility] Heme-Onc Dr. Juan Mendoza; next/fourth treatment is scheduled for 07/05/2024 with [facility] Heme-Onc Dr. Juan Mendoza) for treating his multiple myeloma [which was formally diagnosed on 06/06/2024 via bone marrow biopsy (which "showed kappa monotypic plasma cell neoplasm involving 20-25% of the marrow cellularity. Normocellular marrow (around 50%) with tri-lineage hematopoesis. There was focal positivity for amyloid deposits by Congo red stains. CD 138 showed increased plasma cell involving 20-25% of marrow cellularity. Rare lymphoid aggregates are composed of more CD3+ T cells than CD20+ B cells, reactive process. Cytogenetics pending. Endomyocardial biopsy (06/06/2024) with cardiac amyloidosis, kappa subtype and stained positive with Congo red stain as well. Overall impression is MM/[employer] ([place]) Amyloidosis, stage IIIB, based on NT pro-BNP > 17,000 and HST > 100)(as reported by [facility] Heme-Onc Fellow Dr. Lucero Wild))]; patient now sees [facility] Heme-Onc Dr. Juan Mendoza to manage his multiple myeloma with cardiac amyloidosis. (4) Pericardial effusion: "No pericardial effusion" (as reported on 06/30/2024, 2:35pm TTE, CARDS Dr. Mikey Lara). (5) Hypotension: RESOLVED with discharge BP 110/75 (07/01/2024, 10:48am). cf., admission BP 99/69 (06/30/2024, 9:50am). Etiology of hypotension was most probably due to acute dehydration from his 1 episode of watery, non-bloody, non-oily diarrhea on (06/29/2024) and 4 episodes of bilious emesis without hematemesis on Wednesday (06/30/2024), at home, prior to arrival at [facility] ER (06/30/2024,10:00am). Patient did not receive his home-scheduled eplerenone 50mg PO daily and home-scheduled torsemide 100mg PO daily while in [facility] from 06/30/2024 to 07/01/2024, given the potential for either/both medications to dehydrate the patient further while in [facility] from 06/30/2024 to 07/01/2024. Patient was also advised to hold off resuming his home-scheduled eplerenone 50mg PO daily and home-scheduled torsemide 100mg PO daily until he sees his CHF specialist, Ms. Yvette Rodriguez PA-C, on Wednesday (07/03/2024), as already scheduled. (6) Elevated troponin: cf., troponin-I #1 131.5 pg/mL (06/30/2024, 10:20am). cf., troponin-I #2 112.2 pg/mL (06/30/2024, 12:07pm). cf., EKG (06/30/2024, 10:02am): sinus tach @ 120, NC 166, QTC 424, LAD, TWI in I, aVL, V5, V6, q waves in III, aVF, V1, V2; no acute ST depressions/elevations (by my review). cf., EKG (06/19/2024, 8:58am): sinus tach @ 105, NC 208, QTC 430, LAD, TWI in I, aVL, V5, V6, q waves in III, aVF, V1; no acute ST depressions/elevations (by my review). cf., TTE (06/30/2024, 2:35pm): 1. LVEF > 70%. Moderate concentric LVH. 2. LV wall motion normal at rest. 3. RV normal size and systolic function. 4. LA moderately dilated. RA normal size. 5. No evidence for ASD. 6. No . No AR. 7. No NC. 8. No MS. No MR. 9. Trace TR. 10.Aortic root normal size. PA normal size. IVC normal diameter and respiratory variation suggests normal CVP. 11.No pericardial effusion. 12.Large left pleural effusion. 13.Moderate right pleural effusion. (as per CARDS Dr. Mikey Lara). Etiology of nominal troponin elevation--in the absence of any chest pain, chest tightness, chest heaviness, palpitations, pleurisy, jaw/neck/hand/arm tingling- pain, SOB/RUIZ--and no LV wall motion abnormalities (as reported on 06/30/2024, 2:35pm TTE, CARDS Dr. Mikey Lara), makes acute NSTEMI highly unlikely. Hence, patient was not started on heparin infusion or lovenox 1mg/kg SQ q12. (7) Pleural effusion: cf., CT abd/pelvis with IV contrast (06/30/2024, 10:23am): "Moderate pericardial and pleural effusions with pulmonary edema, bibasilar atelectasis, anasarca with trace abdominopelvic ascites." cf., CT chest with IV contrast (06/30/2024, 11:39am): "moderate dependent bilateral pleural effusions with moderate adjacent compressive atelectasis at bilateral lower lung lobes." cf., TTE (06/30/2024, 2:35pm): "Large left pleural effusion. Moderate right pleural effusion." Patient had NO complaints of SOB/RUIZ, cough, wheeze, or pleurisy while in [facility] from 06/30/2024 to 07/01/2024. Hence, I opted to observe this radiographic finding without pharmacologic intervention while patient remained in [facility] from 06/30/2024 to 07/01/2024. Etiology of bilateral effusions remains unclear, but is most probably due to patient's cardiac amyloidosis. Hence, I have referred patient to his CHF specialist, Ms. Yvette Rodriguez PA-C, whom he will see on Wednesday (07/03/2024), as already scheduled. (8) Elevated procalcitonin: cf., procalcitonin #1 0.52 ng/mL (06/30/2024, 10:25am). cf., procalcitonin #2 0.67 ng/mL (07/01/2024, 9:36am). cf., lactic acid #1 2.1 mmol/L (06/30/2024, 10:18am). cf., lactic acid #2 1.3 mmol/L (07/01/2024, 9:36am). cf., WBC 4.23, N74 L11 M14 B1 (06/30/2024, 10:20am). cf., WBC 3.47, N64 L18 M16 B1 E1 (07/01/2024, 6:54am). cf., U/A (06/30/2024, 3:45pm): clear yellow, LE-, nitrite-, WBC 0-5, RBC 0-2, epithelial cells 0-2, bacteria 0 cf., respiratory pathogen PCR panel (06/30/2024, 2:40pm): adenovirus-; Bordetella pertussis-; Bordetella parapetussis-; Chlamydophila pneumoniae-; Coronavirus OC43-; HKU1-; 229E-; NL63-; COVID-; human metapneumovirus-; influenza A-B-; Mycoplasma pneumoniae-; parainfluenza 1,2,3,4-; RSV-; enterovirus/rhinovirus- cf., blood culture #1 (06/30/2024, 10:18am): cf., blood culture #2 (06/30/2024, 10:20am): Etiology of procalcitonin elevation remains unclear in this patient who remains afebrile and has no complaints of vomiting/diarrhea AFTER arrival to [facility] ER on 06/30/2024, 10:00am; I surmise that patient probably has an acute viral syndrome given his increasing peripheral monocytosis (with M% increasing from 14% (06/30/2024, 10:20am) to 16% (07/01/2024, 6:54am) despite the negative respiratory pathogen PCR panel, which is not exhaustive in terms of assaying for enteric viruses Patient empirically received ceftriaxone 2g IV x 1 dose (06/30/2024, 1:19pm) while in [facility] from 06/30/2024 to 07/01/2024. I have opted to hold off continuing empiric antibiotics on hospital discharge home on 07/01/2024. Patient may follow up surveillance blood culture #1 (06/30/2024, 10:18am) and blood culture #2 (06/30/2024, 10:20am) to completion with his PCP Dr. Evan Portillo within 3-5 days of hospital discharge. Discharge time, 35 minutes. Of this time period, 18 minutes were spent in coordinating patient's discharge. Admission HPI Per Admitting Provider Randy Gordon is a 59 year old male with recent diagnosis of cardiac amyloidoses and heart failure who presents to the ER with nausea, vomiting and epigastric pain. Symptoms started with last night. Never had anything similar although he does take omeprazole daily for reflux and he currently feels his reflux is much worse. Currently abdominal pain has resolved but severity 9/10 on arrival to the ER. He is currently on chemotherapy for cardiac amyloid on his third dose of Audrey-CyBoD which he had on Wednesday. He has never had a reaction like this to the chemotherapy previously. He has been having chronic diarrhea since February which is no worse than usual. 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 Today he was more foggy headed therefore his decided to bring him to the ER. He was unable to take any of his usual medications this morning. No respiratory or urinary symptoms. No fever or chills. No current antibiotics but he is taking valacyclovir for chronic prophylaxis. They are also questioning why [facility] increased his allopurinol and are questioning whether this should return to his prior 100mg dosing. This is on a background of recently diagnosed heart failure in February and subsequent hospitalization at [facility] with diagnosis of amyloidosis. Total 60-65lb weight loss since February. His feels he has reached his dry weight but unable to get a hold of anyone at [place] to discuss reductions in torsemide/eplerenone etc... They are due to follow up in the heart failure clinic here but have not yet done so. He has also had thoracentesis twice. Discharge Exam Constitutional General: Comfortable, coherent, cooperative. Wide awake and alert. Not confused, lethargic, or obtunded. Patient speaks in complete, fluent, and articulate sentences without pause, interruption, cough, or wheeze. HEENT: NC/AT. EOMI, PERRL. No nystagmus, gaze paresis, anisocoria, miosis, mydriasis, hyphema, chemosis, scleral icterus, conjunctivitis, or pterygium. No otorrhea, no rhinorrhea. No pharyngeal discharge or erythema. Neck: Supple, no stridor, bruit, goiter, or hepatojugular reflux. Jugular venous pressure is estimated to be 8 cm above the sternal angle of [place], which is typically 5 cm above the level of the right atrium. Hence, there is no jugular venous distention noted on 07/01/2024. Lymphatics: No pre-post auricular, anterior/posterior cervical, supraclavicular/infraclavicular, axillary, epitrochlear, or inguinal adenopathy. Chest: Symmetric rise and fall with respirations. Non-tender to palpation. Heart: RRR, S1 and S2 noted. No S3 or S4 summation gallop noted. No tripartite friction rub. Grade II/ early systolic murmur @ LLSB without radiation to the carotids, axilla, or back, and which remains invariant in regards to the respiratory cycle. Lungs: Clear to auscultation and percussion. No audible expiratory wheeze, egophony, pectoriloquy, increase in tactile fremitus, or flatness/dullness to percussion at the bases. Abdomen: Soft, non-tender, non-distended. No rebound, guarding, Hallman's sign, or organomegaly. Bowel sounds auscultated in all 4 quadrants. Extremities: No clubbing, cyanosis, or edema. 2+ pedal pulses bilaterally. Skin: Moist mucous membranes. No parched lips or skin tenting present. No exanthem or enanthem or decubitus ulcer. Neurology: Alert and oriented in regards to person, place, time, and situation. DTR+ and symmetric. 5/5 motor strength in all 4 extremities, both proximally and distally. No myoclonus, tremors, or tics. Urology: No cormier catheter. No urethral discharge. Psychiatry: Appropriate affect. Smiles occasionally. No homicidal/suicidal ideation. Discharge Plan Discharge Items Patient Disposition: Home - Self-Care Reason For Visit: NAUSEA, VOMITING, HYPOTENSIVE Discharge Diagnosis: Acute dehydration from 1 episode of diarrhea () and 4 episodes of vomiting (Wednesday) at home. Activity: Resume your previous activity Non-emergency contact: Primary Care Provider Call non-emergency contact if: you have any medication questions Follow-up/Referrals: Evan Portillo [Primary Care Provider] - (Pt will call to schedule follow up) Diet: Regular Addtl Attending Provider Instructions: See your heat failure doctor, Ms. Yvette Rodriguez PA-C, on Wednesday (07/03/2024), as already scheduled. Pending Studies at Discharge: Yes Studies:: Surveillance blood culture #1 (06/30/2024, 10:18am) and blood culture #2 (06/30/2024, 10:20am), to be followed by PCP Dr. Evan Portillo within 3-5 days of hospital discharge. Stand-Alone Forms: My [facility] Busy Moos, Smoking Cessation Medications and DC Order Prescriptions: Continued omeprazole 20 mg capsule,delayed release(DR/EC) 20 mg PO DAILY Held potassium chloride 20 mEq tablet,ER particles/crystals 40 meq PO BID Hold Instructions: Resume on 07/03/24. Hold OFF restarting potassium supplement until you see your heart failure doctor, Ms. Yvette Rodriguez PA-C, on Wednesday (07/03/2024), as already scheduled. torsemide 100 mg tablet 100 mg PO DAILY Hold Instructions: Resume on 07/03/24. Hold OFF restarting torsemide until you see your heart failure doctor, Ms. Yvette Rodriguez PA-C, on Wednesday (07/03/2024), as already scheduled. eplerenone 50 mg tablet 50 mg PO DAILY Hold Instructions: Resume on 07/03/24. Hold OFF restarting eplerenone until you see your heart failure doctor, Ms. Yvette Rodriguez PA-C, on Wednesday (07/03/2024), as already scheduled. valacyclovir 500 mg tablet 500 mg PO BID Hold Instructions: Resume on 07/03/24. Hold OFF restarting valacyclovir until you see your heart failure doctor, Ms. Yvette Rodriguez PA-C, on Wednesday (07/03/2024), as already scheduled. Jardiance 10 mg tablet 10 mg PO DAILY Hold Instructions: Resume on 07/03/24. Hold OFF restarting jardiance until you see your heart failure doctor, Ms. Yvette Rodriguez PA-C, on Wednesday (07/03/2024), as already scheduled. Discontinued diphenoxylate-atropine 2.5-0.025 mg tablet 1 tab PO Q6H PRN (Reason: Diarrhea) allopurinol 100 mg tablet 300 mg PO DAILY Discharge Orders: Discharge Order (Routine); Ordered 07/01/24 Ordered By: José Miguel Kramer Discharge Order- CHF (Routine); Ordered 07/01/24 Ordered By: José Miguel Kramer Admission Data Admit Date/Time: 06/30/24 14:18 Attending Provider: José Miguel Kramer Admmeenu Provider: Brown Blackwood Primary Care Provider: Evan Portillo Other Providers: Brown Blackwood; Mikey Lara; Yvette Rodriguez Hospital Stay Data Consultations 06/30/24 13:26 ED Decision to Admit Stat 06/30/24 16:08 Consult Cardiology Routine [facility] CHF Program Referral Routine Diagnostic Imagining Performed 06/30/24 10:23 CT abd pelvis IV con only Stat 06/30/24 11:39 CT chest diagnostic w con Stat Pending Results Patient Have Any Pending Studies at Discharge: No Discharge Instructions Given to Patient (Per Discharging Provider) See your heat failure doctor, Ms. Yvette Rodriguez PA-C, on Wednesday (07/03/2024), as already scheduled. Total Time Total Time Spent Total Time Spent (In Minutes): 35 minutes. Coding Level of Care Code 83758 INP/OBS DISCH >30 MIN Diagnoses Nausea and vomiting R11.2 Chronic heart failure with preserved ejection fraction I50.32 Heart failure chronicity: chronic Amyloid heart disease E85.4; I43 Pericardial effusion I31.39 Hypotension I95.9 Elevated troponin R79.89 Pleural effusion J90 Elevated procalcitonin R79.89
[2024-07-01 10:52] VITALS: PULSE 106
== END 2024-07-01 12:03 | disposition home or self-care (01) | DRG 392 ==
LOC: ED 09:49 → SUATTDRO 14:18 → EDINP 14:18 → 4W 15:50

== ENCOUNTER 2024-07-24 08:50 | Inpatient (IN) ==
[2024-07-24] MEDS: SODIUM CHLORIDE 0.9% 500 ML IV ONE (09:28)
[2024-07-24 09:37] LABS: Basophils # (auto) 0.06 K/uL (0.00-0.20); Basophils % (auto) 1.1 %; Eosinophils # (auto) 0.05 K/uL (0.00-0.50); Hematocrit (blood only) 42.4 % (42.0-52.0); Immature Granulocytes # (auto) 0.03 K/uL (0.01-0.20); Immature Granulocytes % (auto) 0.6 %; Lymphocytes # (auto) 0.43 K/uL (1.20-3.40); Lymphocytes % (auto) 8.2 %; Mean Corpuscular Hemoglobin 29.7 pg (25.0-34.0); Mean Corpuscular Volume 89.8 fL (80.0-100.0); Monocytes # (auto) 0.41 K/uL (0.11-0.59); Monocytes % (auto) 7.8 %; Neutrophils # (auto) 4.25 K/uL (1.40-6.50); Neutrophils % (auto) 81.3 %; Platelet Count 152 K/uL (130-400); RDW Coefficient of Variation 16.9 % (11.5-14.5); RDW Standard Deviation 53.5 fL (36.4-46.3); Red Blood Count 4.72 M/uL (4.70-6.10); White Blood Count 5.23 K/ul (4.8-10.8)
--- NOTE | 2024-07-24 09:44 | XRay Report ---
XR chest 1V portable CLINICAL HISTORY: sob COMPARISON STUDY: 07/05/2024 FINDINGS: There is stable cardiomegaly with increased pulmonary vascular congestion. There is increas ed opacity in the lung bases with obscuration of the diaphragm and blunting of the costophrenic angle s. No pneumothorax. IMPRESSION: Increased CHF with increased bilateral pleural effusions and lung base consolidation. ACT 112: Negative or not required by law. Electronically signed by: Edward Berrios M.D. 07/24/2024 9:43 AM
[2024-07-24 09:54] LABS: Albumin Globulin Ratio 1.5 (0.9-2); Albumin Level 2.5 gm/dl (3.4-5.0); BUN Creatinine Ratio 22.3 (10-20); Bilirubin,Total 0.4 mg/dl (0.2-1.0); Calcium 7.7 mg/dl (8.6-10.3); Creatinine Clr Calc Pharmacy 72.5 ml/min; Globulin 1.7 gm/dl (2.5-4.0); Magnesium 1.5 mg/dl (1.7-2.4); Potassium 3.9 mmol/L (3.5-5.1); Total Protein 4.2 gm/dl (6.0-8.3)
[2024-07-24 10:06] LABS: INR 1.1 (0.9-1.1); Prothrombin Time 11.4 Seconds (9.0-12.0)
[2024-07-24 10:08] LABS: Troponin I High Sensitivity 122.4 pg/ml (0-20)
[2024-07-24 10:09] LABS: Thyroid Stimulating Hormone 21.014 uIu/ml (0.300-4.500)
--- NOTE | 2024-07-24 10:15 | Emergency Department Note ---
Impression & Plan Dyspnea, Pleural effusion, CHF (congestive heart failure), Elevated troponin ED Provider Note ED Provider Note NAME: KAREN BISHOP AGE:59 SEX: Male : 1965 ARRIVES VIA: Private vehicle INFORMANT: Patient ED PROVIDER(s): Gabriella Duncan DO CHIEF COMPLAINT: Increased difficulty breathing HPI: This is a 59-year-old male with a complex past medical history including amyloidosis and multiple myeloma. Patient follows locally with Dr. Mendoza as well as through the [facility]. His last chemotherapy was Wednesday of last week. Patient has had issues with congestive heart failure as well as significant pleural effusions requiring a thoracentesis over the last few weeks as part of his treatment. He states he was scheduled again to have a thoracentesis done on however overnight developed increased shortness of breath and does not feel he can wait that long. He states he could not lay down and needs to sit upright in order to be able to breathe. He has had diarrhea since his last chemo treatment last week. He has had a minimal appetite according to at bedside. He denies fevers or chills, cough or cold symptoms. Patient with similar prior presentations requiring admission and more urgent thoracentesis. Patient does not wear home oxygen. No prior history of pulmonary problems. states he is currently on cefdinir and has 1 more day. She states he was placed on this as a precaution following the last chest x-ray. Patient is to take his torsemide this morning before coming to the emergency room. He did not have any food or drink. PAST MEDICAL HISTORY:See Below PAST SURGICAL HISTORY:See Below FAMILY HISTORY:See Below SOCIAL HISTORY:See Below HOME MEDICATIONS:See Below ALLERGIES:See Below VITALS:See Below PHYSICAL EXAMINATION: GENERAL: alert, unwell appearing, well nourished, no distress, non-toxic EYE EXAM: normal conjunctiva, PERRL and EOM's grossly intact OROPHARYNX: no exudate, no erythema, lips, buccal mucosa, and tongue normal and mucous membranes are moist NECK: supple, no nuchal rigidity, no adenopathy, non-tender LUNGS: Decreased to auscultation. Normal chest wall mechanics, no wheezes, b/l rales noted, +RUIZ HEART: no murmurs, S1 normal and S2 normal ABDOMEN: abdomen soft, non-tender, normo-active bowel sounds, no masses, no rebound or guarding. Mild protuberance, no fluid wave. BACK: Back is symmetrical on inspection and there is no deformity, no midline tenderness, no CVA tenderness. SKIN: no rashes, petechiae, orbruising UPPER EXTREMITIES: upper extremities are grossly normal. FROM, nml pulses b/l. LOWER EXTREMITIES: 3+ pitting edema b/l. FROM, nml pulses b/l. NEURO EXAM: Normal sensorium, cranial nerves II-XII grossly intact, normal speech, no facial droop,nogross weakness of arms, no gross weakness of legs. Gross sensation intact. No ataxia. Vital Signs: reviewed and remarkable Differential Diagnosis: pneumonia, bronchitis, COPD/Asthma exacerbation, pneumothorax, pulmonary embolism, congestive heart failure, acute coronary syndrome, as well as others were considered MEDICAL DECISION MAKING: THis is a 59 yo male with a complicated hx who presents with increased RUIZ and orthopnea and concern for need of more urgent thoracentesis which was scheduled for later this week. Patient with marked dyspnea with any exertion or prolonged conversation but no hypoxia apparent at rest. Labs drawn and sent, IV established, EKG and CXR performed and interpreted at bedside, and patient placed on telemetry. I reviewed prior admission and thoracentesis and discussed with the IR Jose HECTOR. Given signifcant symptoms and complicated hx, case discussed with hospitalist team for further mgmt until procedure can be performed. Patient noted to have elevated troponin and BNP, which is similar to prior episodes additionally. H/H appear stable. Mild hypomagnesemia noted and he was given IV repletion. He was given a 500 ml IVF bolus due to concern for dehydration and mild hypotension likely from recent diarrhea and continued use of his daily torsemide. Mild hyponatremia also noted. He was afebrile and no leukocytosis or elevated procal, I have a low suspicion for occult infection and patient is finishing antibiotics currently started during last hospitalization. Consultation(s): 1040: Discussed with Jose Izquierdo PA-C with IR. Thoracentesis could be performed tomorrow morning at 10 AM. 1117: Discussed with [facility] hospitalist team for additional evaluation and management. ER Treatment Provided: See below Diagnostics Interpreted By Me: -ECG: Normal sinus at 96, leftward axis, normal intervals, nonspecific ST/T wave changes -Cardiac Monitoring: An order was placed for continuous cardiac monitoring. The monitor shows a rate of 90 with normal sinus rhythm. -Laboratory studies: As stated above and show below. -Imaging studies: cxr: b/l pulm edema and pleural effusions, CM noted, no wide mediastinum Triage Nursing Note Reviewed Prior/Outside Records Reviewed - prior DC summary from June 2024 reviewed Past Med/Surg History Problem List (Updated 07/25/24 @ 11:38 by Gabriella Duncan DO) CHF (congestive heart failure) (Acute) Pleural effusion (Acute) Dyspnea (Acute) Recurrent pleural effusion Elevated procalcitonin Elevated troponin (Acute) Obstructive sleep apnea Hypertension Gout Heart disease Paraproteinemia Pleural effusion Abnormal PFT Pulmonary nodule Medical History Adrenal nodule Nephrolithiasis Surgical History Hx of biopsy (05/29/24) H/O knee surgery (~1999) H/O cardiac catheterization History of thoracentesis Family History Grandfather Cancer Aunt Cancer Diabetes Uncle Cancer Diabetes Father Cancer Hypertension Mother Hypertension Stroke Denies family history of Kidney disease Social History Smoking Status: Former smoker Second Hand Exposure: No; Do You Dip or Chew Tobacco: No; Hx Alcohol Use: Yes Alcohol type: beer Alcohol Intake Frequency: Monthly or Less Hx Substance Use: No Preferred Language: Croatian Communication Ability: Effective Skidder Loader Required: No Beliefs That Will Affect Care: None marital status: Current Living Situation: Spouse current occupational status: employed 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 Feels Safe at Home: Yes Safety Concerns: Feels Safe At This Time Diet: regular during the past year weight has: decreased > 10 lbs Assistive Devices: None Assistive Devices Comment: reading glasses Allergies Allergies Allergy/AdvReac Type Severity Reaction Status Date / Time spironolactone AdvReac Swelling Verified 07/18/24 08:56 of Lip/Tongue/Throat Home Meds Home Medications Medication Instructions Recorded Confirmed omeprazole 20 mg capsule,delayed 20 mg PO QAM Heartburn 06/19/24 07/24/24 release acyclovir 400 mg tablet 400 mg PO BID 07/18/24 07/24/24 mirtazapine 15 mg tablet 15 mg PO DAILY 07/18/24 07/24/24 potassium chloride 20 mEq 20 meq PO DAILY PRN Other 07/18/24 07/24/24 tablet,extended release(part/cryst) Previous Rx's Medication Instructions Recorded torsemide 100 mg tablet 50 mg (1/2 x 100 mg) PO DAILY PRN 07/07/24 weight gain, edema, shortness of breath #30 tabs Results & Data (ED) Vital Signs Vital Signs - 24 hr 07/24/24 11:50 Pulse Rate [Apical] 93 H Respiratory Rate 18 Blood Pressure [Right Arm] 100/59 L Blood Pressure Mean [Right Arm] 72 Pulse Oximetry 96 Oxygen Delivery Method Room Air Laboratory Data 07/25/24 04:00 07/25/24 04:00 Lab Results 07/24/24 07/24/24 Range/Units 09:20 09:53 WBC 5.23 (4.8-10.8) K/ul RBC 4.72 (4.70-6.10) M/uL Hgb 14.0 (14.0-18.0) g/dl Hct 42.4 (42.0-52.0) % MCV 89.8 (80.0-100.0) fL MCH 29.7 (25.0-34.0) pg MCHC 33.0 (32.0-36.0) g/dL RDW Std Deviation 53.5 H (36.4-46.3) fL RDW Coeff of Raul 16.9 H (11.5-14.5) % Plt Count 152 (130-400) K/uL MPV 12.0 (9.4-12.4) fL Immature Gran % (Auto) 0.6 % Neut % (Auto) 81.3 % Lymph % (Auto) 8.2 % [place] % (Auto) 7.8 % Eos % (Auto) 1.0 % Baso % (Auto) 1.1 % Neut # (Auto) 4.25 (1.40-6.50) K/uL Lymph # (Auto) 0.43 L (1.20-3.40) K/uL [place] # (Auto) 0.41 (0.11-0.59) K/uL Eos # (Auto) 0.05 (0.00-0.50) K/uL Baso # (Auto) 0.06 (0.00-0.20) K/uL Immature Gran # (Auto) 0.03 (0.01-0.20) K/uL PT 11.4 (9.0-12.0) Seconds INR 1.1 (0.9-1.1) Sodium 132 L (136-145) mmol/L Potassium 3.9 (3.5-5.1) mmol/L Chloride 98 (98-107) mmol/L Carbon Dioxide 29 (21-32) mmol/L Anion Gap 5 (3-11) BUN 31 H (6-23) mg/dl Creatinine 1.39 (0.6-1.4) mg/dl Est Cr Clr Drug Dosing 72.5 ml/min eGFR 58.40 BUN/Creatinine Ratio 22.3 H (10-20) Glucose 85 (70-99(Fasting)) mg/dl Calcium 7.7 L (8.6-10.3) mg/dl Magnesium 1.5 L (1.7-2.4) mg/dl Total Bilirubin 0.4 (0.2-1.0) mg/dl AST 17 (13-39) U/L ALT 14 (7-52) U/L Alkaline Phosphatase 70 (34-104) U/L Troponin I High Sens 122.4 H* (0-20) pg/ml B-Natriuretic Peptide 835 H (0-100) pg/ml Total Protein 4.2 L (6.0-8.3) gm/dl Albumin 2.5 L (3.4-5.0) gm/dl Globulin 1.7 L (2.5-4.0) gm/dl Albumin/Globulin Ratio 1.5 (0.9-2) Lipase 27 (11-82) U/L Procalcitonin 0.21 (0-0.5) ng/ml TSH 21.014 H (0.300-4.500) uIu/ml Free T4 0.82 (0.61-1.60) ng/dl Urine Color Yellow Urine Appearance Clear (Clear) Urine pH 5.5 (4.5-7.5) Ur Specific Neon 1.012 (1.000-1.030) Urine Protein Trace H (Negative) Urine Glucose (UA) Negative (Negative) Urine Ketones Negative (Negative) Urine Blood Negative (Negative) Urine Nitrite Negative (Negative) Urine Bilirubin Negative (Negative) Urine Urobilinogen Negative (Negative) Ur Leukocyte Esterase Negative (Negative) Urine WBC (Auto) 0-5 (0-5) /hpf Urine RBC (Auto) 0-2 (0-2) /hpf U Hyaline Cast (Auto) 11-20 H (0-2) /lpf U Epithel Cells (Auto) 0-2 (0-2) /hpf Urine Bacteria (Auto) None Seen (None Seen) Urine Mucus Present A (None Prsent) Administered Medications Acyclovir (Acyclovir 400 Mg Tab) 400 mg PO BID AARON Stop: 08/23/24 20:59 Last Admin: 07/25/24 09:14 Dose: Not Given Documented By: Admin: 07/24/24 22:12 Dose: 400 mg Documented By: MICKI Mirtazapine (Mirtazapine Tab 15 Mg Tab) 15 mg PO HS AARON Stop: 08/23/24 22:29 Last Admin: 07/24/24 23:22 Dose: 15 mg Documented By: RUBEN Pantoprazole Sodium (Pantoprazole 40 Mg Tab) 40 mg PO DAILY AARON Stop: 08/24/24 08:59 Last Admin: 07/25/24 09:14 Dose: Not Given Documented By: MAU Discontinued Medications Sodium Chloride (Nss) 500 mls @ 999 mls/hr IV .Q31M ONE Stop: 07/24/24 09:52 Last Infusion: 07/24/24 10:12 Dose: Infused Documented By: Admin: 07/24/24 09:28 Dose: 999 mls/hr Documented By: ZACK Magnesium Sulfate/Dextrose (Magnesium Sulfate / D5w) 1 gm in 100 mls @ 100 mls/hr IV NOW STA Stop: 07/24/24 10:58 Last Infusion: 07/24/24 11:30 Dose: Infused Documented By: Admin: 07/24/24 10:16 Dose: 100 mls/hr Documented By: ZACK Albumin Human (Albumin 25%) 25 gm in 100 mls @ 50 mls/hr IV Q2H AARON Stop: 07/24/24 23:31 Last Infusion: 07/25/24 00:34 Dose: Infused Documented By: Admin: 07/24/24 22:12 Dose: 50 mls/hr Documented By: Infusion: 07/24/24 21:58 Dose: Infused Documented By: Admin: 07/24/24 19:40 Dose: 50 mls/hr Documented By: MICKI Lactated Ringer's (Lr) 500 mls @ 999 mls/hr IV .Q31M ONE Stop: 07/25/24 10:12 Last Admin: 07/25/24 11:18 Dose: 999 mls/hr Documented By: JAMEL Imaging Data Radiologist's Impression: Chest X-Ray 07/24/24 09:20 XR chest 1V portable CLINICAL HISTORY: sob COMPARISON STUDY: 07/05/2024 FINDINGS: There is stable cardiomegaly with increased pulmonary vascular congestion. There is increased opacity in the lung bases with obscuration of the diaphragm and blunting of the costophrenic angles. No pneumothorax. IMPRESSION: Increased CHF with increased bilateral pleural effusions and lung base consolidation. ACT 112: Negative or not required by law. Electronically signed by: Edward Berrios M.D. 07/24/2024 9:43 AM Discharge Plan Visit Data Chief Complaint: Shortness of Breath/Dyspnea Stated Complaint: CAN'T BREATH, SOB ED Provider: Gabriella Duncan Discharge Problem: Dyspnea, Pleural effusion, CHF (congestive heart failure), Elevated troponin Patient Disposition: Admitted As Inpatient Discharge Instructions Interventions: ED Discharge Assessment Last Done: 07/24/24 16:41
[2024-07-24 10:16] LABS: Appearance Urine Clear (Clear); Bacteria Urine Automated None Seen (None Seen); Bilirubin Urine Negative (Negative); Blood Urine Negative (Negative); Color Urine Yellow; Epithelial Cell Urine Auto 0-2 /hpf (0-2); Glucose Urine UA Negative (Negative); Ketones Urine Negative (Negative); Leukocyte Esterase Urine Negative (Negative); Mucus Urine Present (None Prsent); Nitrite Urine Negative (Negative); Protein Urine Trace (Negative); RBC Urine Automated 0-2 /hpf (0-2); Specific Gravity Urine 1.012 (1.000-1.030); Urobilinogen Urine Negative (Negative); WBC Urine Automated 0-5 /hpf (0-5); pH Urine 5.5 (4.5-7.5)
[2024-07-24] MEDS: MAGNESIUM SULFATE / D5W 1 GM/100 ML BAG IV STA (10:16)
[2024-07-24 10:43] LABS: T4 Free Thyroxine 0.82 ng/dl (0.61-1.60)
--- NOTE | 2024-07-24 11:14 | History & Physical Report ---
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 #Pleural effusions #HFpEF - CXR on admission showed worsening of lower lobe fluid buildup bilaterally - multiple etiologies; he is a cancer pt on chemo and has HFpEF secondary to cardiac amyloidosis - last echo 06/30; EF>70% - to get drainage today/tomorrow - last dose torsemide this am; given borderline low BPs and pt comfortable on RA, will defer further diuretics today unless clinical status changes #Elevated troponin - 122 on admission, repeat pending - EKG without ST elevations - suspect demand ischemia #Multiple myeloma - follows with Dr. Mendoza for oncology - oncology consulted; pending recs #Pneumonia - got 10 day course of cefdinir on 07/12 for possible CAP, last dose today - procal neg, afebrile - defer further antibiotics at this time, but if afebrile would recommend covering for this given modified course #Elevated TSH - most likely reactive given recent chemo/recent illness - recheck in a few weeks outpatient Diet: NPO pending thoracentesis VTE ppx: holding today as pt to get thoracentesis today or tomorrow am History of Present Illness Chief Complaint: Shortness of breath Primary Care Provider: Evan Bandar Pt is a 59 yo male with a past medical history of multiple myeloma on chemotherapy weekly on Wednesdays (last one 07/19), HFpEF secondary to cardiac amyloidosis, pleural effusions requiring multiple thoracenteses, HTN, DANIEL not on CPAP who presents to the hospital on 07/24 for increasing SOB in the setting of worsening pleural effusions. Pt states that he had his last chemo session last week on Wednesday. He states he had some diarrhea immediately after when he got home that continued for 2-3 days. He states that there was no blood in it and he has been fine the last few days. He states that yesterday during the day he felt great, just some mild baseline SOB with activity. He states that into the night he started to get progressive shortness of breath and was unable to lay flat at all last night because of his SOB. He states he hardly slept because of this. He states he went to the cancer center this morning for labs and his SOB while walking around was much more severe than his baseline so he decided to come into the ED. No nausea or vomiting. No chest pain. He states that he does have leg swelling regularly which is not worse today. He states he took torsemide this morning prior to coming in. He states he does chemo weekly right now for 3 more weeks, then it will be every other week for 8 more treatments and then spaced on more after that per pt. He follows with Dr. Mendoza for oncology for his multiple myeloma. His in the room states he was on cefdinir at home for pneumonia. Given his diarrhea last week, they were doing in once daily instead of BID. His last dose would have been today for a 10 day course. No fevers. No cough or congestion or sore throat. Last thoracentesis on 07/05 and was planned to have his next one for maintenance drainage this . Allergies Allergy/AdvReac Type Severity Reaction Status Date / Time spironolactone AdvReac Swelling Verified 07/18/24 08:56 of Lip/Tongue/Throat Home Medications Medication Instructions Recorded Confirmed Type omeprazole 20 mg capsule,delayed 20 mg PO DAILY Heartburn 06/19/24 07/24/24 History release torsemide 100 mg tablet 50 mg (1/2 x 100 mg) PO DAILY PRN 07/07/24 07/24/24 Rx weight gain, edema, shortness of breath #30 tabs acyclovir 400 mg tablet 400 mg PO BID 07/18/24 07/24/24 History mirtazapine 15 mg tablet 15 mg PO DAILY 07/18/24 07/24/24 History potassium chloride 20 mEq 20 meq PO DAILY PRN Other 07/18/24 07/24/24 History tablet,extended release(part/cryst) Past Med/Surg History Problem List (Updated 07/24/24 @ 11:17 by Gabriella Duncan DO) CHF (congestive heart failure) (Acute) Pleural effusion (Acute) Dyspnea (Acute) Recurrent pleural effusion Elevated procalcitonin Elevated troponin Obstructive sleep apnea Hypertension Gout Heart disease Paraproteinemia Pleural effusion Abnormal PFT Pulmonary nodule Medical History Adrenal nodule Nephrolithiasis Surgical History Hx of biopsy (05/29/24) H/O knee surgery (~1999) H/O cardiac catheterization History of thoracentesis Family History Grandfather Cancer Aunt Cancer Diabetes Uncle Cancer Diabetes Father Cancer Hypertension Mother Hypertension Stroke Denies family history of Kidney disease Social History Smoking Status: Never smoker Second Hand Exposure: No; Do You Dip or Chew Tobacco: No; Hx Alcohol Use: No Hx Substance Use: No Preferred Language: Senegalese Communication Ability: Effective Catering Cook Required: No Beliefs That Will Affect Care: None marital status: Current Living Situation: Alone current occupational status: employed 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 Physical Exam Physical Exam: General: Alert and oriented, no acute distress, comfortable appearing HEENT: Normocephalic, moist oral mucosa, Cardio: Regular rate and rhythm, Resp: Lungs clear to auscultation b/l in middle/upper lungs with decreased air movement in lower lobes, no wheezes or rhonchi, GI: Soft and nontender, nondistended, bowel sounds active Skin: Warm, pink, dry, Extremities: 2+ pitting edema bilaterally, symmetric Results & Data Results & Data Vital Signs (Past 12 Hours) Vital Signs Temp Pulse Pulse Resp BP BP Pulse Ox 07/24/24 10:42 97 H 20 118/74 97 07/24/24 10:05 97 H 07/24/24 09:23 96 H 22 95/64 L 96 07/24/24 09:23 96 07/24/24 08:55 36.5 C 96 H 22 96/67 L 94 O2 Del Method 07/24/24 10:42 Room Air 07/24/24 10:05 07/24/24 09:23 Room Air 07/24/24 09:23 Room Air 07/24/24 08:55 Room Air Supervising Physician Co-Signing Physician Notes Patient was seen and examined independently I discussed the case with Tiarra Schaefer I reviewed pertinent past medical social family history and also the plan of care and agree with the plan of care. Patient progressive shortness of breath and dyspnea. According to the emergency room physician he was hypoxic with ambulation. He is a history of multiple myeloma and a cardiac myopathy with heart failure preserved ejection fraction. He is scheduled for chemotherapy this Wednesday he, 07/26 and had a scheduled thoracentesis on 07/27. He is unable to tolerate his dyspnea and presents to the emergency department for definitive treatment. Examination finds the patient to have an S3 on cardiac examination. There is decreased breath sounds are absent breath sounds to both bases with dullness to percussion consistent with his pleural effusion bilaterally Extremities are with trace to 1+ edema. Patient has recurrence of cancer related pleural effusions. Scheduled for thoracentesis we will facilitate that towards thoracentesis to hopefully have him able to participate in his outpatient chemotherapeutic schedule. Reviewing laboratories CBC and chemistry discussion with the ER physician discussed with interventional radiology provider Any exceptions will be noted below Resident Activity Tracking Resident Involvement: Resident Care Provided Care Provided: Adult Hospital Medicine (4) Heart failure with preserved ejection fraction Heart failure chronicity: chronic Qualified Code(s): I50.32 - Chronic diastolic (congestive) heart failure
[2024-07-24] MEDS ORDERED: hydrOXYzine HCl 10 MG TAB PO PRN (11:56)
--- NOTE | 2024-07-24 12:42 | Billing Data ---
Date of Service July 24, 2024 Coding Level of Care Code 84247 INT INP/OBS CARE
--- NOTE | 2024-07-24 14:32 | Ultrasound Report ---
ULTRASOUND-GUIDED LEFT THORACENTESIS CLINICAL HISTORY: Left pleural effusion PROCEDURE: Procedure and risks were explained. Informed consent was obtained. A final timeout was com pleted. The left posterior thorax was prepped and draped in sterile fashion. 1% lidocaine was utilize d for skin anesthesia. Utilizing ultrasound guidance, a 5 Maori safety centesis catheter was advanced into the left pleural effusion. Ultrasound images were obtained. A total of 1500 mL of yellow pleural fluid was removed an d discarded. The catheter was removed and Band-Aid applied. The patient tolerated the procedure well. A chest x-ray will be obtained post procedure. Vital signs will be monitored on the floor. IMPRESSION: Ultrasound-guided left thoracentesis as above. Plan for right thoracentesis tomorrow tommie ing. Performed, dictated, and signed by Vamsi Izquierdo PA-C; to be co-signed by Dr. Edward Berrios. Electronically signed by: Edward Berrios M.D. 07/24/2024 4:08 PM
--- NOTE | 2024-07-24 14:42 | XRay Report ---
XR chest 1V portable CLINICAL HISTORY: S/P Thoracentesis COMPARISON STUDY: 07/24/2024 FINDINGS: Stable cardiomegaly with pulmonary vascular congestion. Left pleural effusion is improved. No pneumothorax. Right pleural effusion and lung base consolidation is stable. IMPRESSION: No pneumothorax. ACT 112: Negative or not required by law. Electronically signed by: Edward Berrios M.D. 07/24/2024 2:40 PM
[2024-07-24] MEDS ORDERED: ONDANSETRON INJ 2 MG/ML 2 ML VIAL IV PRN (16:40)
[2024-07-24] MEDS ORDERED: POLYETHYLENE (MIRALAX) 17 GM PACK PO PRN (16:40)
[2024-07-24] MEDS ORDERED: ACETAMINOPHEN 325 MG TAB PO PRN (16:40)
[2024-07-24] MEDS ORDERED: MELATONIN 3 MG TAB PO PRN (16:40)
[2024-07-24] MEDS: ALBUMIN 25% 25 GM/100 ML VIAL IV SCH (19:40)
--- NOTE | 2024-07-24 20:04 | Oncology Consultation ---
Date of Consultation July 24, 2024 Assessment & Plan (1) CHF (congestive heart failure): Tenuous condition. His BP will run low due to underlying pathophysiology of his heart (i.e cardiac amyloidosis). Recommend minimizing fluid boluses so as not to overload him and put him in overt heart failure. Target SBP ~90 mmHg. After thora/paracentesis give albumin to prevent thridspacing of fluid. Consult our cardiology colleagues, though in the detention care will be dircted from Cardiac Amyloid [facility] at [facility]. (2) Recurrent pleural effusion: S/p thoracentesis, symptomatically improved. Recommend albumin post thora to prevent third spacing. 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 Avoiding dexamethasone to prevent decompensation of heart failure. Plan Hematology will continue to follow and make appropriate recommendations. History of Present Illness Reason for Consultation: Cardiac Amyloidosis B/l pleural effusion Heart Failure Respiratory failure Attending Physician: Tiarra Schaefer DO History of Present Illness Right ventricle, endomyocardial biopsy, 06/06/2024: Cardiac amyloidosis, kappa subtype Diagnosed at the [facility] Bone marrow biopsy, 06/06/2024: [place] monotypic plasma cells involving 20 to 25% marrow cellularity Normocellular marrow, 50% with trilineage hematopoiesis Current treatment protocol: Audrey-CyBorD per the [employer] trial. Audrey CyBorD, cycle 1 day 1: 06/07/2024 Audrey CyBorD, cycle 2-day 1: 07/12/2024 [facility] get myeloma directed therapy locally for cardiac amyloidosis. S/p 2 cycles of Audrey + CyBorD. Currently presented with worsening SOB, weakness was found to have b/l pleureal effusion and underwent a thoracentesis. Medical oncology has been consulted to assist in management of this patient with light chain cardiac amyloidosis. Allergies Allergy/AdvReac Type Severity Reaction Status Date / Time spironolactone AdvReac Swelling Verified 07/18/24 08:56 of Lip/Tongue/Throat Home Medications Medication Instructions Recorded Confirmed Type omeprazole 20 mg capsule,delayed 20 mg PO QAM Heartburn 06/19/24 07/24/24 History release torsemide 100 mg tablet 50 mg (1/2 x 100 mg) PO DAILY PRN 07/07/24 07/24/24 Rx weight gain, edema, shortness of breath #30 tabs acyclovir 400 mg tablet 400 mg PO BID 07/18/24 07/24/24 History mirtazapine 15 mg tablet 15 mg PO DAILY 07/18/24 07/24/24 History potassium chloride 20 mEq 20 meq PO DAILY PRN Other 07/18/24 07/24/24 History tablet,extended release(part/cryst) Patient History Medical History Adrenal nodule Nephrolithiasis Surgical History Hx of biopsy (05/29/24) H/O knee surgery (~1999) H/O cardiac catheterization History of thoracentesis Family History Grandfather Cancer Aunt Cancer Diabetes Uncle Cancer Diabetes Father Cancer Hypertension Mother Hypertension Stroke Denies family history of Kidney disease Social History Smoking Status: Never smoker Second Hand Exposure: No; Do You Dip or Chew Tobacco: No; Hx Alcohol Use: No Hx Substance Use: No Preferred Language: Tanzanian Communication Ability: Effective 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 Constitutional: as per Subjective / HPI Eyes: as per Subjective / HPI Ear, Nose, Mouth, Throat: as per Subjective / HPI Respiratory: as per Subjective / HPI Cardiovascular: as per Subjective / HPI Gastrointestinal: as per Subjective / HPI Genitourinary: + as per Subjective / HPI Musculoskeletal: as per Subjective / HPI Integumentary: as per Subjective / HPI Neurologic: as per Subjective / HPI Psychiatric: as per Subjective / HPI Endocrine: as per Subjective / HPI Hematologic / Lymphatic: as per Subjective / HPI Allergy / Immunological: as per Subjective / HPI Physical Exam Constitutional: WD/WN, vitals as above Eyes: PERRL, conjunctivae normal, anicteric sclerae ENMT: external ear and nose normal, oropharynx normal Neck: trachea midline, no thyromegaly Respiratory: normal respiratory effort, lungs clear to auscultation Cardiovascular: RRR, no murmur, no edema Gastrointestinal (Abdomen): normal bowel sounds, soft, nontender, no hepatosplenomegaly Musculoskeletal: no cyanosis or clubbing, extremities motor strength 5/5 Skin: no rashes, warm and dry Neurologic: patellar DTR's 2+ bilat, sensation intact Results & Data Vital Signs (Past 12 Hours) Vital Signs Temp Pulse Pulse Resp BP BP Pulse Ox 07/24/24 18:54 96 H 20 81/50 L 94 07/24/24 18:30 95 H 16 77/58 L 95 07/24/24 18:03 94 H 20 98/62 L 95 07/24/24 17:33 94 H 14 88/63 L 95 07/24/24 17:09 94 H 18 92/58 L 96 07/24/24 16:30 94 H 11 L 93/60 L 92 07/24/24 16:00 92 H 14 99/58 L 91 07/24/24 15:30 95 H 16 98/65 L 97 07/24/24 15:00 96 H 21 92/57 L 96 07/24/24 14:45 97 H 22 81/56 L 99 07/24/24 14:30 97 H 16 89/69 L 97 07/24/24 11:50 93 H 18 100/59 L 96 07/24/24 10:42 97 H 20 118/74 97 07/24/24 10:05 97 H 07/24/24 09:23 96 H 22 95/64 L 96 07/24/24 09:23 96 07/24/24 08:55 36.5 C 96 H 22 96/67 L 94 O2 Del Method 07/24/24 18:54 07/24/24 18:30 07/24/24 18:03 07/24/24 17:33 07/24/24 17:09 07/24/24 16:30 Room Air 07/24/24 16:00 Room Air 07/24/24 15:30 Room Air 07/24/24 15:00 Room Air 07/24/24 14:45 Room Air 07/24/24 14:30 Room Air 07/24/24 11:50 Room Air 07/24/24 10:42 Room Air 07/24/24 10:05 07/24/24 09:23 Room Air 07/24/24 09:23 Room Air 07/24/24 08:55 Room Air
[2024-07-24] MEDS: ACYCLOVIR 400 MG TAB PO SCH (22:12)
[2024-07-24] MEDS: MIRTAZAPINE TAB 15 MG TAB PO SCH (23:22)
[2024-07-25 04:23] LABS: Basophils # (auto) 0.04 K/uL (0.00-0.20); Basophils % (auto) 1.1 %; Eosinophils # (auto) 0.04 K/uL (0.00-0.50); Eosinophils % (auto) 1.1 %; Hematocrit (blood only) 33.9 % (42.0-52.0); Hemoglobin 11.5 g/dl (14.0-18.0); Immature Granulocytes # (auto) 0.03 K/uL (0.01-0.20); Immature Granulocytes % (auto) 0.8 %; Lymphocytes # (auto) 0.51 K/uL (1.20-3.40); Lymphocytes % (auto) 14.4 %; Mean Corpuscular Hemoglobin 30.3 pg (25.0-34.0); Mean Corpuscular Hgb Conc 33.9 g/dL (32.0-36.0); Mean Corpuscular Volume 89.2 fL (80.0-100.0); Mean Platelet Volume 12.7 fL (9.4-12.4); Monocytes # (auto) 0.41 K/uL (0.11-0.59); Monocytes % (auto) 11.6 %; Platelet Count 131 K/uL (130-400); RDW Coefficient of Variation 16.4 % (11.5-14.5); RDW Standard Deviation 52.7 fL (36.4-46.3); White Blood Count 3.53 K/ul (4.8-10.8)
[2024-07-25 04:42] LABS: Albumin Globulin Ratio 2.4 (0.9-2); Albumin Level 2.6 gm/dl (3.4-5.0); BUN Creatinine Ratio 24.6 (10-20); Bilirubin,Total 0.4 mg/dl (0.2-1.0); Calcium 7.4 mg/dl (8.6-10.3); Creatinine Clr Calc Pharmacy 85.4 ml/min; Globulin 1.1 gm/dl (2.5-4.0); Magnesium 1.7 mg/dl (1.7-2.4); Potassium 3.7 mmol/L (3.5-5.1); Total Protein 3.7 gm/dl (6.0-8.3)
--- NOTE | 2024-07-25 06:55 | Hospitalist Progress Note ---
Date of Service July 25, 2024 Assessment & Plan (1) Recurrent pleural effusion: (2) Elevated troponin: Plan Pt is a 59 yo male with a past medical history of multiple myeloma on chemotherapy weekly on Wednesdays (last one 07/19), HFpEF secondary to cardiac amyloidosis, pleural effusions requiring multiple thoracenteses, HTN, DANIEL not on CPAP who presents to the hospital on 07/24 for increasing SOB in the setting of worsening pleural effusions. #Pleural effusions #HFpEF - CXR on admission showed worsening of lower lobe fluid buildup bilaterally - multiple etiologies; he is a cancer pt on chemo and has HFpEF secondary to cardiac amyloidosis - last echo 06/30; EF>70% - last dose torsemide 07/24 in the am; given borderline low BPs and second round of thoracentesis today, will defer further diuretics today unless clinical status changes - one side drainage of fluid yesterday, to get other side drained today via thoracentesis #Hypotension - borderline low normally now with even lower values s/p thoracentesis - his situation is tricky as he is hypotensive but volume overloaded in the third space, and suspect this will be an ongoing challenge given his amyloid heart disease - will do 500 mL bolus prior to thoracentesis today +/- albumin with goal MAP >65 #Elevated troponin - 122 on admission, repeat 155 - EKG without ST elevations - suspect demand ischemia #Multiple myeloma - follows with Dr. Mendoza for oncology - oncology consulted; appreciate recs #Pneumonia - got 10 day course of cefdinir on 07/12 for possible CAP, last dose today - procal neg, afebrile - defer further antibiotics at this time, but if afebrile would recommend covering for this given modified course #Elevated TSH - most likely reactive given recent chemo/recent illness - recheck in a few weeks outpatient Diet: NPO pending thoracentesis today VTE ppx: holding today as pt to get thoracentesis this afternoon Admission and Anticipated Discharge Date Admission Date: July 24, 2024 Supervising Physician Co-Signing Physician Notes Patient was seen and examined independently I discussed the case with Tiarra Schaefer I reviewed pertinent past medical social family history and also the plan of care and agree with the plan of care. Patient progressive shortness of breath and dyspnea. According to the emergency room physician he was hypoxic with ambulation. He is a history of multiple myeloma and a cardiac myopathy with heart failure preserved ejection fraction. He is scheduled for chemotherapy this Wednesday he, 07/26 and had a scheduled thoracentesis on 07/27. He was unable to tolerate his dyspnea and presented to the emergency department for definitive treatment. Examination finds the patient to have an S3 on cardiac examination. There is decreased breath sounds are absent breath sounds to both bases with dullness to percussion consistent with his pleural effusion bilaterally Extremities are with trace to 1+ edema. Patient has recurrence of cancer related pleural effusions. Patient had bilateral thoracentesis for approximately 1500 mL each the past these fluid collections were exudative in nature. He developed some relative hypotension post procedure and had albumin infusion. With IV fluid bolus Barring any issues anticipated discharge is in the morning at 3 5 to have a follow-up appointment with Dr. Mendoza [facility] Any exceptions will be noted below Subjective Pt seen at bedside this morning. He states that after the thoracentesis yesterday he noted significant improvement in his SOB symptoms. He states he feels like overall he can breathe much easier. No chest pain. He did require 2L of oxygen to be started overnight as he said his oxygen saturations dropped overnight. No nausea or vomiting. No abdominal pain. He states with his improvement he would like to go home today but is agreeable to stay until anju rrow given his low blood pressures. Review of Systems Review of Systems: Per HPI. Physical Exam Physical Exam: General: Alert and oriented, no acute distress, comfortable appearing HEENT: Normocephalic, moist oral mucosa, Cardio: Regular rate and rhythm, Resp: Lungs clear to auscultation b/l in middle/upper lungs with decreased air movement and crackles in bilateral in lower lobes with faint rhonchi in R lower lobe noted on exam today GI: Soft and nontender, nondistended, bowel sounds active Skin: Warm, pink, dry, Extremities: 2+ pitting edema bilaterally, symmetric Results & Data Results & Data Vital Signs (Past 12 Hours) Vital Signs Pulse Pulse Resp BP BP Pulse Ox O2 Del Method 07/25/24 06:11 99 H 16 83/64 L 99 Nasal Cannula 07/25/24 05:00 96 H 12 88/68 L 100 Nasal Cannula 07/25/24 05:00 100 Nasal Cannula 07/25/24 01:43 86 L Room Air, Nasal Cannula 07/25/24 00:36 100 H 18 81/57 L 93 Room Air 07/25/24 00:20 99 H 22 92/61 L 96 Room Air 07/24/24 23:36 97 H 07/24/24 21:33 96 H 16 82/56 L 93 07/24/24 21:12 98 H 21 83/52 L 97 07/24/24 21:06 96 H 18 81/53 L 96 07/24/24 20:03 96 H 15 87/57 L 94 07/24/24 19:36 97 H 16 86/55 L 96 07/24/24 19:00 96 H 20 88/51 L 95 07/24/24 18:54 96 H 20 81/50 L 94 O2 Flow Rate 07/25/24 06:11 2 07/25/24 05:00 2 07/25/24 05:00 3 07/25/24 01:43 0 07/25/24 00:36 07/25/24 00:20 07/24/24 23:36 07/24/24 21:33 07/24/24 21:12 07/24/24 21:06 07/24/24 20:03 07/24/24 19:36 07/24/24 19:00 07/24/24 18:54 Resident Activity Tracking Resident Involvement: Resident Care Provided Care Provided: Adult Hospital Medicine
--- NOTE | 2024-07-25 08:09 | XRay Report ---
EXAM: XR chest 1V portable CLINICAL HISTORY: S/P Thoracentesis TECHNIQUE: An X-ray image of the chest is obtained in 1 AP projection. COMPARISON: last study on 07/05/2024. FINDINGS: Pulmonary Parenchyma: Increase in the amount of bilateral pleural effusion (more at right side) with underlying lung collapse Prominent bronchovascular markings, bilateral basal and left upper zone alveolar haziness. Heart and Mediastinum: Prominent hilar vascular shadows. Apparent cardiomegaly No mediastinal widening or masses. No hilar or mediastinal lymphadenopathy. Bony Thorax: The bony thorax appears intact without fractures or deformities. Soft Tissues: Soft tissues overlying the chest wall are unremarkable. Chest leads are noted. IMPRESSION: 1. Increase in the amount of bilateral pleural effusion (more at right side) with underlying lung collapse. 2. Prominent bronchovascular markings, bilateral basal and left upper zone alveolar haziness (stable). 3. Apparent cardiomegaly (stable). Electronically signed by Jabier Buckner 07-25-2024 08:09 AM
[2024-07-25] MEDS ORDERED: MIRTAZAPINE TAB 15 MG TAB PO SCH (09:00)
[2024-07-25] MEDS: PANTOprazole 40 MG TAB PO SCH (09:14)
--- NOTE | 2024-07-25 11:08 | XRay Report ---
XR chest 1V not portable CLINICAL HISTORY: s/p rt thora COMPARISON STUDY: Chest radiograph performed earlier today. FINDINGS: There is no pneumothorax following right thoracentesis. The right pleural effusion has decr eased in size since prior exam. Left pleural effusion is again noted. Pulmonary edema persists. Cardi omediastinal is stable. IMPRESSION: 1. No pneumothorax following right thoracentesis. 2. Cardiomegaly with interstitial pulmonary edema and bilateral pleural effusions. Right pleural effu shelbie decreased in size. ACT 112: Negative or not required by law. Electronically signed by: Med Francisco M.D. 07/25/2024 11:07 AM
[2024-07-25] MEDS: LACTATED RINGER'S 500 ML IV ONE (11:18)
--- NOTE | 2024-07-25 12:46 | Ultrasound Report ---
ULTRASOUND-GUIDED RIGHT THORACENTESIS CLINICAL HISTORY: Right pleural effusion PROCEDURE: Procedure and risks were explained. Informed consent was obtained. A final timeout was com pleted. The right posterior thorax was prepped and draped in sterile fashion. 1% lidocaine was utiliz ed for skin anesthesia. Utilizing ultrasound guidance, a 5 [place]ic safety centesis catheter was advanced into the right pleura l effusion. Ultrasound images were obtained. A total of 1500 mL of yellow pleural fluid was removed a nd discarded. The catheter was removed and Band-Aid applied. The patient tolerated the procedure well . A chest x-ray will be obtained post procedure. Vital signs will be monitored on the floor. IMPRESSION: Ultrasound-guided right thoracentesis as above. Performed, dictated, and signed by Vamsi Izquierdo PA-C; to be co-signed by Dr. Med Francisco. Electronically signed by: Med Francisco M.D. 07/25/2024 2:22 PM
[2024-07-25] MEDS: ALBUMIN 25% 25 GM/100 ML VIAL IV ONE (13:38)
[2024-07-25 16:14] VITALS: RESP 18
[2024-07-25] MEDS: ALUMINUM/MAGNESIUM SUSP 30 ML UDC PO PRN (17:55)
--- NOTE | 2024-07-25 19:02 | Billing Data ---
Date of Service July 25, 2024 Coding Level of Care Code 89877 SUB INP/OBS CARE
[2024-07-26 04:47] VITALS: TEMP 97.9
[2024-07-26 04:48] VITALS: O2SAT 94
--- NOTE | 2024-07-26 06:54 | Discharge Summary ---
Date of Service July 26, 2024 Admission HPI Per Admitting Provider Pt is a 59 yo male with a past medical history of multiple myeloma on chemotherapy weekly on Wednesdays (last one 07/19), HFpEF secondary to cardiac amyloidosis, pleural effusions requiring multiple thoracenteses, HTN, DANIEL not on CPAP who presents to the hospital on 07/24 for increasing SOB in the setting of worsening pleural effusions. Pt states that he had his last chemo session last week on Wednesday. He states he had some diarrhea immediately after when he got home that continued for 2-3 days. He states that there was no blood in it and he has been fine the last few days. He states that yesterday during the day he felt great, just some mild baseline SOB with activity. He states that into the night he started to get progressive shortness of breath and was unable to lay flat at all last night because of his SOB. He states he hardly slept because of this. He states he went to the cancer center this morning for labs and his SOB while walking around was much more severe than his baseline so he decided to come into the ED. No nausea or vomiting. No chest pain. He states that he does have leg swelling regularly which is not worse today. He states he took torsemide this morning prior to coming in. He states he does chemo weekly right now for 3 more weeks, then it will be every other week for 8 more treatments and then spaced on more after that per pt. He follows with Dr. Mendoza for oncology for his multiple myeloma. His in the room states he was on cefdinir at home for pneumonia. Given his diarrhea last week, they were doing in once daily instead of BID. His last dose would have been today for a 10 day course. No fevers. No cough or congestion or sore throat. Last thoracentesis on 07/05 and was planned to have his next one for maintenance drainage this . Admission Exam Per Admitting Provider General: Alert and oriented, no acute distress, comfortable appearing HEENT: Normocephalic, moist oral mucosa, Cardio: Regular rate and rhythm, Resp: Lungs clear to auscultation b/l in middle/upper lungs with decreased air movement in lower lobes, no wheezes or rhonchi, GI: Soft and nontender, nondistended, bowel sounds active Skin: Warm, pink, dry, Extremities: 2+ pitting edema bilaterally, symmetric Principal Diagnosis Recurrent pleural effusions Discharge Exam General: Alert and oriented, no acute distress, comfortable appearing HEENT: Normocephalic, moist oral mucosa, Cardio: Regular rate and rhythm, Resp: Lungs clear to auscultation b/l other than mild crackles noted in LLL base GI: Soft and nontender, nondistended, bowel sounds active Skin: Warm, pink, dry, Extremities: 1+ pitting edema bilaterally, symmetric Discharge Data Allergies Allergy/AdvReac Type Severity Reaction Status Date / Time spironolactone AdvReac Swelling Verified 07/18/24 08:56 of Lip/Tongue/Throat Consultations 07/24/24 11:17 ED Decision to Admit Stat 07/24/24 16:40 Consult Oncology Routine Ordered Studies 07/24/24 12:28 IR thoracentesis wo tube US Routine 07/25/24 07:00 IR thoracentesis wo tube US Routine Hospital Course (1) Recurrent pleural effusion: (2) Elevated troponin: Plan Pt is a 59 yo male with a past medical history of multiple myeloma on chemoth erapy weekly on Wednesdays (last one 07/19), HFpEF secondary to cardiac amyloidosis, pleural effusions requiring multiple thoracenteses, HTN, DANIEL not on CPAP who presents to the hospital on 07/24 for increasing SOB in the setting of worsening pleural effusions. #Pleural effusions #HFpEF - CXR on admission showed worsening of lower lobe fluid buildup bilaterally - multiple etiologies; he is a cancer pt on chemo and has HFpEF secondary to cardiac amyloidosis - last echo 06/30; EF>70% - got thoracentesis on 07/24 and 07/25 with vast symptom improvement, wishing to go today 07/26 to make it to his oncology appt today #Hypotension - borderline low at baseline - advised on discharge he check his BP at home, charanjit prior to taking torsemide doses #Elevated troponin - 122 on admission, repeat 115 - EKG without ST elevations - suspect demand ischemia #Multiple myeloma - follows with Dr. Mendoza for oncology - to continue to follow with oncology on discharge #Pneumonia - got 10 day course of cefdinir on 07/12 for possible CAP, last dose on day of admission - procal neg, afebrile throughout admission - deferred further antibiotics this admission #Elevated TSH - most likely reactive given recent chemo/recent illness - recheck in a few weeks outpatient Total Time Total Time Spent Total Time Spent (In Minutes): As per attending attestation. Discharge Plan Discharge Items Patient Disposition: Home - Self-Care Reason For Visit: SHORTNESS OF BREATH Discharge Diagnosis: Recurrent pleural effusions Activity: As commented below Activity Comment: Activity as tolerated. Non-emergency contact: Primary Care Provider, Oncologist and Soda Flaker Call non-emergency contact if: you have any medication questions, your symptoms worsen, your pain is unusual for you and your temperature is above 101 Follow-up/Referrals: Evan Portillo [Primary Care Provider] - Diet: Regular Addtl Attending Provider Instructions: You were admitted to the hospital for a recurrence of fluid build up around the lungs (called pleural effusions). You underwent a thoracentesis procedure on both lungs to remove some of this fluid to make it easier for you to breathe, and as you are feeling better, we feel it is safe for you to go home to attend your next oncology appointment. You may resume taking your torsemide as needed for swelling/weight gain when you leave the hospital, but you should take your blood pressure and if your top number (systolic blood pressure value) is less than 100, you should not take the dose. Please plan to follow-up with your primary care provider within 1 week of discharge from the hospital. Pending Studies at Discharge: No Stand-Alone Forms: My [facility] Medications and DC Order Prescriptions: Continued torsemide 100 mg tablet 50 mg PO DAILY PRN (Reason: weight gain, edema, shortness of breath) Qty: 30 3RF Hold Instructions: Resume on 07/03/24. Hold OFF restarting torsemide until you see your heart failure doctor, Ms. Yvette Rodriguez PA-C, on Wednesday (07/03/2024), as already scheduled. Rx Instructions: Can increase to 100 mg as needed for weight gain or swelling. acyclovir 400 mg tablet 400 mg PO BID mirtazapine 15 mg tablet 15 mg PO DAILY potassium chloride 20 mEq tablet,ER particles/crystals 20 meq PO DAILY PRN (Reason: Other) Hold Instructions: Resume on 07/03/24. Hold OFF restarting potassium supplement until you see your heart failure doctor, Ms. Yvette Rodriguez PA-C, on Wednesday (07/03/2024), as already scheduled. omeprazole 20 mg capsule,delayed release(DR/EC) 20 mg PO QAM Discharge Orders: Discharge Order (Routine); Ordered 07/26/24 Ordered By: Tiarra Schaefer Admission Data Admit Date/Time: 07/24/24 11:53 Attending Provider: Caden Mott Admit Provider: Tiarra Schaefer Primary Care Provider: Evan Portillo Other Providers: Caden Mott; Juan Mendoza Other Interventions: Discharge Summary Assessment (RN) Last Done: 07/26/24 08:58 Supervising Physician Co-Signing Physician Notes Patient was seen and examined independently I discussed the case with Tiarra Schaefer I reviewed pertinent past medical social family history and also the plan of care and agree with the plan of care. Patient progressive shortness of breath and dyspnea. According to the emergency room physician he was hypoxic with ambulation. He is a history of multiple myeloma and a cardiac myopathy with heart failure preserved ejection fraction. He is scheduled for chemotherapy this Wednesday he, 07/26 and had a scheduled thoracentesis on 07/27. He was unable to tolerate his dyspnea and presented to the emergency department for definitive treatment. Examination finds the patient to have an S3 on cardiac examination. There is improved breath sounds to both bases Extremities are with trace edema. Patient has recurrence of cancer related pleural effusions. Patient had bilateral thoracentesis for approximately 1500 mL each the past these fluid collections were exudative in nature. He developed some relative hypotension post procedure and had albumin infusion. discharge 07/26/24 to have a follow-up appointment with Dr. Mendoza [facility] Any exceptions will be noted below Resident Activity Tracking Resident Involvement: Resident Care Provided Care Provided: Adult Hospital Medicine
[2024-07-26 08:59] VITALS: BP 94/57; PULSE 80
--- NOTE | 2024-07-26 17:22 | Billing Data ---
Date of Service July 26, 2024 Coding Level of Care Code 59299 IN/OBS DISCH 30 MIN/LESS
--- NOTE | 2024-07-26 18:54 | Electrocardiogram Report ---
Test Reason : Blood Pressure : */* mmHG Vent. Rate : 96 BPM Atrial Rate : 96 BPM P-R Int : 200 ms QRS Dur : 84 ms QT Int : 334 ms P-R-T Axes : * -49 114 degrees QTcB Int : 421 ms Normal sinus rhythm Left axis deviation Low voltage QRS Cannot rule out Anteroseptal infarct (cited on or before 19-Jun-2024) Abnormal ECG When compared with ECG of 30-Jun-2024 10:02, Questionable change in initial forces of Anteroseptal leads Confirmed by Shaun Parnell ([id number]) on 07/26/2024 6:53:42 PM Referred By: REFERRED SELF Confirmed By: Shaun Parnell
== END 2024-07-26 07:15 | disposition home or self-care (01) | DRG 840 ==
LOC: ED 08:50 → EDINP 11:53 → SUATTDRO 11:53 → 2W 16:41

== ENCOUNTER 2024-07-31 07:27 | Observation (INO) ==
--- NOTE | 2024-07-31 08:02 | Emergency Department Note ---
Impression & Plan Recurrent pleural effusion, Exertional dyspnea, Acute dehydration ED Provider Note Name: KAREN BISHOP Age: 59 Sex: Male Arrives Via: Walk-In Informant: Patient, ED Provider: José iMguel Hurd MD Chief Complaint: Shortness of breath Impression: As per impressions above Medical Decision Makin-year-old very pleasant gentleman arrives with his for evaluation of shortness of breath and chest pain. Patient with a history of multiple myeloma for which he is on chemotherapy. Over the last few weeks he has had a significant difficulty medical course with multiple hospitalizations for recurrent effusions shortness of breath and chest pains. He arrives with worsening symptoms once again. He has been having pretty significant diarrhea the last several days as well. By examination he has significant third spacing but I believe is intravascularly depleted. He was given 500 mL IV fluids and does appear significantly improved feeling much better. That said, I am significantly concerned about the degree of his symptoms the pleural effusions and his general inability to be able to tolerate at home management at this time. I did discuss this with the hospitalist and they will bring in for further management. Triage/Nursing Notes reviewed by Me External Chart Review by me: Discharge summary from 07/26/2024 reviewed by me discussing past medical history and previous management. Differential:Reactive airway disease, pneumonia, pneumothorax, COPD, CHF, infections, cardiac ischemia, pulmonary embolism, musculoskeletal, gastrointestinal, as well as other pathologies. Vital Signs: reviewed and remarkable for hypotension -improved with normal saline bolus to patient's baseline Interventions: Normal saline bolus 500 mL IV Labs:ED labs Reviewed by me and remarkable for elevated troponin, this is baseline multiple other laboratory abnormalities consistent with patient's medical comorbidity and cancer management Imagin view chest x-ray as per my interpretation bilateral pleural effusions and some mild pulmonary edema noted EKG:As per my interpretation. Indication chest pain. Sinus at 98 bpm with a QTc of 418. Nonspecific T wave abnormalities with some low voltage noted. When compared to the EKG of July 24, 2024 it is relatively similar. Cardiac/Tele Monitoring: Cardiac Monitoring: An Order was placed for continuous cardiac monitoring. The monitor shows a rate of 90 with a normal sinus rhythm. Consults:Discussed with hospital service who will further manage Plan: Disposition:Hospitalization. Condition: Fair History of Present Illness: 59-year-old gentleman arrives for evaluation of shortness of breath and chest pain. Over the last several days rapidly worsening chest pain and shortness of breath. This is primarily with exertion. Better with rest. He states he is currently feeling a bit better while laying in the bed but the moment he gets up he will have symptoms. Denies any syncope, vomiting. He has been dealing with significant diarrheal issues due to being on acyclovir. He also has significant fluid swelling in his legs. Patient has not been eating or drinking well the last few days. Past Medical History:See Below Home Medications:See Below Allergies:spironolactone Vitals:Blood Pressure: 78/56, Pulse 85, RR 24, T 36.3C, O2 97% on RA Physical Exam: GENERAL: Patient is chronically unwell appearing and in mild distress. Dehydrated appearing, dry mucous membranes RESPIRATORY: No dyspnea. Clear to auscultation and equal bilaterally. CARDIOVASCULAR: Regular rate and rhythm.No murmur appreciated. GASTROINTESTINAL: Abdomen soft, non-tender, no peritonitis. BACK: No midline tenderness, no CVA tenderness EXTREMITIES: Normal motion all extremities, no cyanosis, moderate bilateral leg edema NEUROLOGIC: Alert and oriented. No focal neurologic deficits appreciated SKIN: No rash, no jaundice, no diaphoresis. PSYCH: Appropriate GCS: 15 ED Course: Times/Reassessments: Patient does appear much improved after initial fluid bolus. Blood pressure is returned to his baseline and he is in no distress. He is agreeable to hospitalization for workup and management of multiple findings José Miguel Hurd MD Past Med/Surg History Problem List (Updated 08/02/24 @ 07:42 by José Miguel Hurd MD) Acute dehydration (Acute) Exertional dyspnea (Acute) Multiple myeloma (Acute) Decreased oral intake (Acute) Bilateral lower extremity edema (Acute) Pleural effusion (Acute) Dyspnea (Acute) Recurrent pleural effusion (Acute) Elevated procalcitonin Elevated troponin (Acute) Obstructive sleep apnea Hypertension Gout Heart disease Paraproteinemia Pleural effusion Abnormal PFT Pulmonary nodule Medical History Adrenal nodule Nephrolithiasis Surgical History Hx of biopsy (05/29/24) H/O knee surgery (~1999) H/O cardiac catheterization History of thoracentesis Family History Grandfather Cancer Aunt Cancer Diabetes Uncle Cancer Diabetes Father Cancer Hypertension Mother Hypertension Stroke Denies family history of Kidney disease Social History Smoking Status: Never smoker Second Hand Exposure: No; Do You Dip or Chew Tobacco: No; Hx Alcohol Use: Yes Alcohol type: beer Alcohol Intake Frequency: Monthly or Less Hx Substance Use: No Preferred Language: Maltese Communication Ability: Effective 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 Required: No Beliefs That Will Affect Care: None marital status: Current Living Situation: Spouse current occupational status: employed 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 Feels Safe at Home: Yes Diet: regular during the past year weight has: decreased > 10 lbs Assistive Devices: Cane Allergies Allergies Allergy/AdvReac Type Severity Reaction Status Date / Time spironolactone Allergy Severe Swelling Verified 07/31/24 10:19 of Lip/Tongue/Throat Home Meds Home Medications Medication Instructions Recorded Confirmed omeprazole 20 mg capsule,delayed 20 mg PO QAM Heartburn 06/19/24 07/31/24 release mirtazapine 15 mg tablet 15 mg PO DAILY 07/18/24 07/31/24 potassium chloride 20 mEq 20 meq PO DAILY PRN When taking 07/18/24 07/31/24 tablet,extended release(part/cryst) Torsemide diphenoxylate-atropine 2.5 1 tab PO Q6H PRN Diarrhea 07/31/24 07/31/24 mg-0.025 mg tablet ondansetron 8 mg disintegrating 8 mg PO Q8H PRN Nausea And Vomiting 07/31/24 07/31/24 tablet prochlorperazine maleate 10 mg 10 mg PO Q6H PRN Nausea And 07/31/24 07/31/24 tablet Vomiting Previous Rx's Medication Instructions Recorded torsemide 100 mg tablet 50 mg (1/2 x 100 mg) PO DAILY PRN 07/07/24 weight gain, edema, shortness of breath #30 tabs valacyclovir 500 mg tablet 500 mg PO BID 30 days #60 tabs 08/01/24 Results & Data (ED) Vital Signs Vital Signs - 24 hr 07/31/24 07:34 03/10/25 07:45 Temperature 36.0 C L 36.3 C L Temperature Source Temporal Artery Scan Oral Pulse Rate 85 Respiratory Rate 24 Respiratory Effort / Characteristics Spontaneous Short of Breath Respiratory Depth Normal Blood Pressure 78/56 L Blood Pressure Mean 63 Pulse Oximetry 97 Oxygen Delivery Method Room Air Sepsis Recent Fever Within 48 Hours No Sepsis New/Unexplained Change in Mental Status N/A Sepsis Action Taken by Nursing Physician Notified Laboratory Data 08/01/24 05:49 08/01/24 05:49 Lab Results 07/31/24 07/31/24 07/31/24 Range/Units 07:57 08:05 10:04 WBC 2.00 L (4.8-10.8) K/ul RBC 4.35 L (4.70-6.10) M/uL Hgb 13.2 L (14.0-18.0) g/dl Hct 39.7 L (42.0-52.0) % MCV 91.3 (80.0-100.0) fL MCH 30.3 (25.0-34.0) pg MCHC 33.2 (32.0-36.0) g/dL RDW Std Deviation 56.6 H (36.4-46.3) fL RDW Coeff of Raul 17.2 H (11.5-14.5) % Plt Count 143 (130-400) K/uL MPV 13.0 H (9.4-12.4) fL Immature Gran % (Auto) 1.0 % Neut % (Auto) 62.0 % Lymph % (Auto) 13.0 % Norton % (Auto) 20.0 % Eos % (Auto) 1.5 % Baso % (Auto) 2.5 % Neut # (Auto) 1.24 L (1.40-6.50) K/uL Lymph # (Auto) 0.26 L (1.20-3.40) K/uL Norton # (Auto) 0.40 (0.11-0.59) K/uL Eos # (Auto) 0.03 (0.00-0.50) K/uL Baso # (Auto) 0.05 (0.00-0.20) K/uL Immature Gran # (Auto) 0.02 (0.01-0.20) K/uL Toxic Granulation 1+ Dohle Bodies 1+ Polychromasia 1+ Macrocytosis Present Sodium 134 L (136-145) mmol/L Potassium 3.9 (3.5-5.1) mmol/L Chloride 99 (98-107) mmol/L Carbon Dioxide 27 (21-32) mmol/L Anion Gap 8 (3-11) BUN 30 H (6-23) mg/dl Creatinine 1.33 (0.6-1.4) mg/dl Est Cr Clr Drug Dosing 73.1 ml/min eGFR 61.57 BUN/Creatinine Ratio 22.6 H (10-20) Glucose 94 (70-99(Fasting)) mg/dl Calcium 8.3 L (8.6-10.3) mg/dl Magnesium 2.0 (1.7-2.4) mg/dl Total Bilirubin 0.6 (0.2-1.0) mg/dl Direct Bilirubin 0.1 (0-0.2) mg/dl AST 12 L (13-39) U/L ALT 7 (7-52) U/L Alkaline Phosphatase 71 (34-104) U/L Troponin I High Sens 118.9 H* 111.0 H* (0-20) pg/ml Total Protein 4.9 L (6.0-8.3) gm/dl Albumin 2.8 L (3.4-5.0) gm/dl Lipase 12 (11-82) U/L SARS-CoV-2 (PCR) NEGATIVE (Negative) Influenza Type A (PCR) Negative (Neg) Influenza Type B (PCR) Negative (Neg) RSV (RT-PCR) Negative (Neg) Administered Medications Discontinued Medications Acyclovir (Acyclovir 400 Mg Tab) 400 mg PO BID [facility] Stop: 08/30/24 20:59 Last Admin: 08/01/24 09:47 Dose: Not Given Documented By: Admin: 07/31/24 19:38 Dose: 400 mg Documented By: ANNE Diphenoxylate HCl/Atropine (Diphenoxylate/Atropine 2.5/0.025mg Tab) 1 tab PO Q6H PRN PRN Reason: Diarrhea Stop: 08/30/24 11:24 Last Admin: 08/01/24 17:13 Dose: 1 tab Documented By: BELEN Sodium Chloride (Nss) 500 mls @ 999 mls/hr IV .Q31M ONE Stop: 07/31/24 08:40 Last Infusion: 07/31/24 09:31 Dose: Infused Documented By: Admin: 07/31/24 08:13 Dose: 999 mls/hr Documented By: MARLENE Albumin Human (Albumin 25%) 25 gm in 100 mls @ 50 mls/hr IV ONE ONE Stop: 07/31/24 17:46 Last Infusion: 07/31/24 19:04 Dose: Infused Documented By: Admin: 07/31/24 16:44 Dose: 50 mls/hr Documented By: CATHERINE Albumin Human (Albumin 25%) 25 gm in 100 mls @ 50 mls/hr IV ONE ONE Stop: 08/01/24 16:37 Last Infusion: 08/01/24 16:49 Dose: Infused Documented By: Admin: 08/01/24 14:57 Dose: 50 mls/hr Documented By: BELEN Ioversol (Optiray 320 125ml) 112 ml IV ONCE ONE Stop: 07/31/24 11:22 Last Admin: 07/31/24 11:22 Dose: 112 ml Documented By: JAZMINE Mirtazapine (Mirtazapine Tab 15 Mg Tab) 15 mg PO DAILY AARON Stop: 08/31/24 08:59 Last Admin: 08/01/24 09:12 Dose: Not Given Documented By: BELEN Pantoprazole Sodium (Pantoprazole 40 Mg Tab) 40 mg PO QAM AARON Stop: 08/31/24 08:59 Last Admin: 08/01/24 09:12 Dose: 40 mg Documented By: BELEN Discharge Plan Visit Data Chief Complaint: Shortness of Breath/Dyspnea Stated Complaint: SHORTNESS OF BREATH,CHEST PAIN ED Provider: José Miguel Hurd Discharge Problem: Recurrent pleural effusion, Exertional dyspnea, Acute dehydration Patient Disposition: Admitted As Inpatient Discharge Instructions Interventions: ED Discharge Assessment Last Done: 07/31/24 11:25
[2024-07-31] MEDS: SODIUM CHLORIDE 0.9% 500 ML IV ONE (08:13)
--- NOTE | 2024-07-31 08:20 | XRay Report ---
XR chest 1V portable CLINICAL HISTORY: SOB COMPARISON STUDY: 07/25/2024 FINDINGS: Single view portable chest is unchanged demonstrating cardiomegaly, pulmonary vascular marcella estion, small bilateral pleural effusions, and bibasilar airspace opacities most of which are probabl y compressive atelectasis although a component of pneumonia or pulmonary edema is not excluded. IMPRESSION: Stable exam as described ACT 112: Negative or not required by law. Electronically signed by: Edna Elizondo M.D. 07/31/2024 8:19 AM
[2024-07-31 08:29] LABS: Hematocrit (blood only) 39.7 % (42.0-52.0); Hemoglobin 13.2 g/dl (14.0-18.0); Mean Corpuscular Hemoglobin 30.3 pg (25.0-34.0); Mean Corpuscular Hgb Conc 33.2 g/dL (32.0-36.0); Mean Corpuscular Volume 91.3 fL (80.0-100.0); Platelet Count 143 K/uL (130-400); RDW Coefficient of Variation 17.2 % (11.5-14.5); RDW Standard Deviation 56.6 fL (36.4-46.3); Red Blood Count 4.35 M/uL (4.70-6.10)
[2024-07-31 08:49] LABS: Albumin Level 2.8 gm/dl (3.4-5.0); BUN Creatinine Ratio 22.6 (10-20); Bilirubin Direct 0.1 mg/dl (0-0.2); Bilirubin,Total 0.6 mg/dl (0.2-1.0); Calcium 8.3 mg/dl (8.6-10.3); Creatinine Clr Calc Pharmacy 73.1 ml/min; Potassium 3.9 mmol/L (3.5-5.1); Total Protein 4.9 gm/dl (6.0-8.3)
[2024-07-31 08:53] LABS: Influenza A virus by PCR Negative (Neg); Influenza B virus by PCR Negative (Neg); RSV by PCR Negative (Neg); SARS CoV2 RNA(COVID-19) Ceph NEGATIVE (Negative)
[2024-07-31 09:02] LABS: Troponin I High Sensitivity 118.9 pg/ml (0-20)
[2024-07-31 09:15] LABS: Basophils # (auto) 0.05 K/uL (0.00-0.20); Basophils % (auto) 2.5 %; Dohle Bodies 1+; Eosinophils # (auto) 0.03 K/uL (0.00-0.50); Eosinophils % (auto) 1.5 %; Immature Granulocytes # (auto) 0.02 K/uL (0.01-0.20); Lymphocytes # (auto) 0.26 K/uL (1.20-3.40); Macrocytosis Present; Neutrophils # (auto) 1.24 K/uL (1.40-6.50); Polychromasia 1+; Toxic Granulation 1+
--- NOTE | 2024-07-31 10:13 | History & Physical Report ---
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 #Dyspnea in the setting of Recurrent Pleural Effusions - multiple etiologies-> prior fluid studies have shown educative-> MM on chemo and with history of HFpEF secondary cardiac amyloidosis - CTA without PE, but with increased pleural effusions - Plan for thoracentesis-> albumin post as per heme/onc #HPpEF in the setting of cardiac amyloidosis #LE Edema - last echo 06/30; EF>70% - hold torsemide with borderline low BPs and hypotensive post thoracentesis prior - LE edema R>L -> Venous Doppler pending #Elevated Troponin - EKG without acute ischemic changes - Troponin 118-111 - likely demand ischemia in the setting of worsening pleural effusion - watch on tele #Multiple myeloma - follows with Dr. 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 States that after his weekly chemotherapy he generally feels bad for a few days, increased dyspnea/fatigue but usually starts to feel better after 2-3 days. He did feel decent on Wednesday, but Wednesday started to have increased dyspnea with some left sided chest pain that radiates to left ribs. Had trouble sleeping last night, but was able to lay flat without increased dyspnea. Increased LE edema R>L-> largely unchanged, denies calf pain. ED Course Significant for: CXR with B/L pleural effusion. WBC= 2, Hgb= 13.2, CMP unremarkable, Troponin 118-> 111. EKG with NSR no acute ischemic changes per my read. S/p 500mL NSS Allergies Allergy/AdvReac Type Severity Reaction Status Date / Time spironolactone Allergy Severe Swelling Verified 07/31/24 10:19 of Lip/Tongue/Throat Home Medications Medication Instructions Recorded Confirmed Type omeprazole 20 mg capsule,delayed 20 mg PO QAM Heartburn 06/19/24 07/31/24 History release torsemide 100 mg tablet 50 mg (1/2 x 100 mg) PO DAILY PRN 07/07/24 07/31/24 Rx weight gain, edema, shortness of breath #30 tabs acyclovir 400 mg tablet 400 mg PO BID 07/18/24 07/31/24 History mirtazapine 15 mg tablet 15 mg PO DAILY 07/18/24 07/31/24 History potassium chloride 20 mEq 20 meq PO DAILY PRN When taking 07/18/24 07/31/24 History tablet,extended release(part/cryst) Torsemide diphenoxylate-atropine 2.5 1 tab PO Q6H PRN Diarrhea 07/31/24 07/31/24 History mg-0.025 mg tablet ondansetron 8 mg disintegrating 8 mg PO Q8H PRN Nausea And Vomiting 07/31/24 07/31/24 History tablet prochlorperazine maleate 10 mg 10 mg PO Q6H PRN Nausea And 07/31/24 07/31/24 History tablet Vomiting Past Med/Surg History Problem List (Updated 07/25/24 @ 11:38 by Gabriella Duncan DO) CHF (congestive heart failure) (Acute) Pleural effusion (Acute) Dyspnea (Acute) Recurrent pleural effusion Elevated procalcitonin Elevated troponin (Acute) Obstructive sleep apnea Hypertension Gout Heart disease Paraproteinemia Pleural effusion Abnormal PFT Pulmonary nodule Medical History Adrenal nodule Nephrolithiasis Surgical History Hx of biopsy (05/29/24) H/O knee surgery (~1999) H/O cardiac catheterization History of thoracentesis Family History Grandfather Cancer Aunt Cancer Diabetes Uncle Cancer Diabetes Father Cancer Hypertension Mother Hypertension Stroke Denies family history of Kidney disease Social History Smoking Status: Never smoker Second Hand Exposure: No; Do You Dip or Chew Tobacco: No; Hx Alcohol Use: Yes Alcohol type: beer Alcohol Intake Frequency: Monthly or Less Hx Substance Use: No Preferred Language: Omani Communication Ability: Effective Supervisor Shop Required: No Beliefs That Will Affect Care: None marital status: Current Living Situation: Spouse current occupational status: employed 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 Feels Safe at Home: Yes Diet: regular during the past year weight has: decreased > 10 lbs Assistive Devices: None Review of Systems Review of Systems: As per above Physical Exam Physical Exam: Constitutional: well-appearing, no acute distress HEENT: NCAT, no conjunctival injection CV: regular rhythm, no murmur appreciated, extremities well-perfused, + LE edema Resp: CTABL, no wheezes/rales/rhonchi appreciated GI: soft, nondistended, nontender, BS normoactive MSK: no gross deformities appreciated Skin: warm, dry, no rash appreciated Neuro: alert, oriented, no focal neurologic deficit appreciated Results & Data Results & Data Vital Signs (Past 12 Hours) Vital Signs Temp Pulse Resp BP Pulse Ox O2 Del Method 07/31/24 09:12 95 H 21 94 Room Air 07/31/24 09:06 93/69 L 07/31/24 08:51 96 H 23 94 Room Air 07/31/24 08:42 94 H 18 95 Room Air 07/31/24 08:30 86/65 L 07/31/24 08:27 94 H 27 H 07/31/24 08:20 93 H 07/31/24 08:06 94 H 22 96 Room Air 07/31/24 08:01 87/68 L 07/31/24 07:57 94 H 18 95 Room Air 07/31/24 07:46 82/66 L 07/31/24 07:45 36.3 C L 07/31/24 07:34 36.0 C L 85 24 78/56 L 97 Room Air Supervising Physician Co-Signing Physician Notes I personally examined the patient and verified all cotton points of history and exam, discussed case, and agree with decision making with Dr Fowler recurrent shortness of breath just had thoracentesis last week for depression as well. Was unable to get chemotherapy vitals noted nad somewhat dyspneic but not too severe. no pallor or icterus. neuro without focal deficits. exam otherwise as above. labs, diagnostics noted dyspnea/effusions - related to chronic processes myleoma, cardiac amyloid w dC HF, malnutrition - will require repeat thora. ongoing chemo malnutrition - chronic, appearing to be severe protein uncertain calorie. discussed nutrition plans, nutrition goals. consult thread puller as well otherwise as above Resident Activity Tracking Resident Involvement: Resident Care Provided Care Provided: Adult Hospital Medicine
[2024-07-31] MEDS: OPTIRAY 320 125ml IV ONE (11:22)
[2024-07-31] MEDS ORDERED: ONDANSETRON 8MG OD TAB PO PRN (11:25)
[2024-07-31] MEDS ORDERED: POTASSIUM CHLORIDE CRTAB 20 MEQ TABCR PO PRN (11:25)
[2024-07-31] MEDS ORDERED: PROCHLORPERAZINE MALEATE 10 MG TAB PO PRN (11:25)
--- NOTE | 2024-07-31 11:45 | CT Scan Report ---
CT angio chest PE protocol CT DOSE: 856.5 mGy.cm HISTORY: PE. Progressive shortness of breath and chest pain. Recent chemotherapy for myeloma TECHNIQUE: Multiple CTA images of the chest were obtained after the intravenous administration of 112 ml Optiray. Coronal and sagittal MIPS were obtained from the axial data set and were submitted for review. All measurements were obtained according to NASCET criteria. A dose lowering technique was u tilized adhering to the principles of ALARA. COMPARISON STUDY: 03/07/2024 FINDINGS: There is no evidence of pulmonary embolism. The patient has moderate-sized bilateral pleura l effusions that are associated with compressive atelectasis and have increased in size since the ines or examination. Other than the compressive atelectasis, the lung elkins show no additional focal find ings. There is no adenopathy. There is no aortic aneurysm. The upper airway is unremarkable. There is a small pericardial effusion. There is haziness in the subcutaneous fat consistent with anasarca. IMPRESSION: No evidence of pulmonary embolism. Increasing bilateral pleural effusions in association with hazy, generalized groundglass density in the upper lung zones and haziness of the subcutaneous f at point toward anasarca. ACT 112: Negative or not required by law. The above report was generated using voice recognition software. It may contain grammatical, syntax o r spelling errors. Electronically signed by: Edna Elizondo M.D. 07/31/2024 11:44 AM
--- NOTE | 2024-07-31 15:03 | Billing Data ---
Date of Service July 31, 2024 Coding Level of Care Code 86532 INT INP/OBS CARE
--- NOTE | 2024-07-31 15:37 | Ultrasound Report ---
ULTRASOUND-GUIDED LEFT THORACENTESIS CLINICAL HISTORY: Left pleural effusion PROCEDURE: Procedure and risks were explained. Informed consent was obtained. A final timeout was com pleted. The left posterior thorax was prepped and draped in sterile fashion. 1% lidocaine was utilize d for skin anesthesia. Utilizing ultrasound guidance, a 5 Khmer safety centesis catheter was advanced into the left pleural effusion. Ultrasound images were obtained. A total of 1500 mL of yellow pleural fluid was removed an d discarded. The catheter was removed and Band-Aid applied. The patient tolerated the procedure well. A chest x-ray will be obtained post procedure. Vital signs will be monitored on the floor. IMPRESSION: Ultrasound-guided left thoracentesis as above. Performed, dictated, and signed by Vamsi Izquierdo PA-C; to be co-signed by Dr. Med Francisco. Electronically signed by: Med Francisco M.D. 07/31/2024 4:07 PM
--- NOTE | 2024-07-31 15:38 | XRay Report ---
XR chest 1V not portable CLINICAL HISTORY: s/p left thora COMPARISON STUDY: 07/25/2024 FINDINGS: Single view chest demonstrates no evidence of a left pneumothorax status post thoracentesis . Small left pleural effusion remains. A moderate right pleural effusion remains. Bilateral compressi ve atelectasis present. Right basilar infiltrate not excluded. Chronic cardiomegaly and pulmonary vas cular engorgement unchanged. IMPRESSION: No pneumothorax. ACT 112: Negative or not required by law. Electronically signed by: Edna Elizondo M.D. 07/31/2024 3:37 PM
--- NOTE | 2024-07-31 16:33 | Ultrasound Report ---
Clinical History: Swelling Technique: Venous ultrasound evaluation was performed utilizing grayscale, color Doppler and wave form evaluation. Images were also obtained with and without compression Findings: The bilateral common femoral, superficial femoral, popliteal, and visualized calf veins demonstrate normal anechoic lumens with full compressibility. Normal flow is seen on color Doppler images. Expected waveforms were produced with augmentation maneuvers There is a 2.2 x 2 x 0.8 cm right knee Leo's cyst. There is a 3.9 x 2.5 x 1.1 cm left knee Leo's cyst Impression: 1. No evidence of deep venous thrombosis 2. Bilateral Leo cysts Electronically signed by Keagan Wynn 07-31-2024 4:33 PM
[2024-07-31] MEDS: ALBUMIN 25% 25 GM/100 ML VIAL IV ONE (16:44)
[2024-07-31] MEDS: ACYCLOVIR 400 MG TAB PO SCH (19:38)
[2024-08-01 06:07] LABS: Basophils # (auto) 0.05 K/uL (0.00-0.20); Basophils % (auto) 2.4 %; Eosinophils # (auto) 0.03 K/uL (0.00-0.50); Eosinophils % (auto) 1.4 %; Hematocrit (blood only) 33.7 % (42.0-52.0); Hemoglobin 11.4 g/dl (14.0-18.0); Immature Granulocytes # (auto) 0.02 K/uL (0.01-0.20); Lymphocytes # (auto) 0.27 K/uL (1.20-3.40); Mean Corpuscular Hemoglobin 30.6 pg (25.0-34.0); Mean Corpuscular Hgb Conc 33.8 g/dL (32.0-36.0); Mean Corpuscular Volume 90.3 fL (80.0-100.0); Mean Platelet Volume 12.4 fL (9.4-12.4); Monocytes # (auto) 0.48 K/uL (0.11-0.59); Monocytes % (auto) 23.2 %; Neutrophils # (auto) 1.22 K/uL (1.40-6.50); Platelet Count 128 K/uL (130-400); RDW Coefficient of Variation 17.2 % (11.5-14.5); RDW Standard Deviation 56.1 fL (36.4-46.3); Red Blood Count 3.73 M/uL (4.70-6.10); White Blood Count 2.07 K/ul (4.8-10.8)
--- NOTE | 2024-08-01 06:17 | Electrocardiogram Report ---
Test Reason : Blood Pressure : */* mmHG Vent. Rate : 98 BPM Atrial Rate : 100 BPM P-R Int : * ms QRS Dur : 86 ms QT Int : 328 ms P-R-T Axes : * -31 116 degrees QTcB Int : 418 ms Sinus rhythm Left axis deviation Low voltage QRS Septal infarct (cited on or before 19-Jun-2024) Nonspecific T wave abnormality Abnormal ECG When compared with ECG of 24-Jul-2024 09:14, Questionable change in initial forces of Anteroseptal leads Confirmed by Nolan Fry ([id number]) on 08/01/2024 6:16:59 AM Referred By: REFERRED SELF Confirmed By: Nolan Fry
[2024-08-01 07:12] LABS: Creatinine Clr Calc Pharmacy 77.8 ml/min; Potassium 3.7 mmol/L (3.5-5.1)
[2024-08-01] MEDS: MIRTAZAPINE TAB 15 MG TAB PO SCH (09:12)
[2024-08-01] MEDS: PANTOprazole 40 MG TAB PO SCH (09:12)
--- NOTE | 2024-08-01 09:31 | Hospitalist Progress Note ---
Date of Service August 01, 2024 Assessment & Plan (1) Recurrent pleural effusion: Plan: Patient s/p L thoracentesis 07/31/24 with 1.5L fluid removed. Reports resolution of CP and improvement of SOB post procedure. Lung sounds remain diminished in RLL and new onset wheezing present globally in bilateral lungs. Patient is not in any respiratory distress. Patient was also here for similar symptoms and thoracentesis 1 week ago. Significant production of fluid in pleural space within a short time frame reflective of malignant process. - CXR and clinical exam show improvement of pleural effusion post thoracentesis - R thoracentesis performed today + albumin administration - Patient requires education on red flag symptoms to return to ED for treatment and possible thoracentesis as pleural effusions develop. Hemodynamically stable and eligible for discharge pending tolerates R thoracentesis today (2) Multiple myeloma: Plan: Patient with history of multiple myeloma undergoing chemotherapy treatment once weekly. For the past 2 weeks, patient has not had a dose of steroids before therapy as he had previously. Patient reports significant decreased oral intake since starting chemotherapy. However, appetite was improved last night and this morning. Adequate nutrition status is important for patients receiving cancer treatment as it is a predictor of outcomes. Consider quantifying patient's current oral intake using BMR calculation, calorie log. Patient currently on Remeron 15 mg daily-may not be the best option giving inconclusive evidence support this medication as a treatment of chemotherapy induced anorexia. Consider dronabinol or olanzapine to stimulate appetite if decreased PO persists. - Due to concerns of diarrhea associated with acyclovir ingestion, switch to valacyclovir 500mg po BID for viral prophylaxis - Calculated pt Basal Metabolic Rate to be 1987 kcal/day. Requires [id number] kcal/day according to [place] guidelines - Evaluate current caloric intake using calorie log and titrate appropriately - Consider initiating olanzapine, dronabinol for chemotherapy induced anorexia (3) Bilateral lower extremity edema: Plan: Significant pitting edema in bilateral lower extremities, fluid retention in abdomen. Patient labs and physical exam not suggestive of fluid retention due to heart failure, but rather 3rd spacing. Albumin administered yesterday post thoracentesis. Some improvement of LE swelling this morning. Recirculating the stagnant fluid in lower extremities may improve low blood pressure readings. reports they have been holding his torsemide since the last hospital admission due to KELSY. - Consider compression socks for reduction of 3rd spacing Plan Patient s/p L thoracentesis 07/31/24 with 1.5L fluid removed. Reports resolution of CP and improvement of SOB post procedure. Lung sounds remain diminished in RLL and new onset wheezing present globally in bilateral lungs. Patient is not in any respiratory distress. Patient was also here for similar symptoms and thoracentesis 1 week ago. Significant production of fluid in pleural space within a short time frame reflective of malignant process. - CXR and clinical exam show improvement of pleural effusion post thoracentesis - R thoracentesis performed today + albumin administration - Patient requires education on red flag symptoms to return to ED for treatment and possible thoracentesis as pleural effusions develop. Hemodynamically stable and eligible for discharge pending tolerates R thoracentesis today Patient with history of multiple myeloma undergoing chemotherapy treatment once weekly. For the past 2 weeks, patient has not had a dose of steroids before therapy as he had previously. Patient reports significant decreased oral intake since starting chemotherapy. However, appetite was improved last night and this morning. Adequate nutrition status is important for patients receiving cancer treatment as it is a predictor of outcomes. Consider quantifying patient's current oral intake using BMR calculation, calorie log. Patient currently on Remeron 15 mg daily-may not be the best option giving inconclusive evidence support this medication as a treatment of chemotherapy induced anorexia. Consider dronabinol or olanzapine to stimulate appetite if decreased PO persists. - Due to concerns of diarrhea associated with acyclovir ingestion, switch to valacyclovir 500mg po BID for viral prophylaxis - Calculated pt Basal Metabolic Rate to be 1987 kcal/day. Requires [id number] kcal/day according to Pe[place] guidelines - Evaluate current caloric intake using calorie log and titrate appropriately - Consider initiating olanzapine, dronabinol for chemotherapy induced anorexia Significant pitting edema in bilateral lower extremities, fluid retention in abdomen. Patient labs and physical exam not suggestive of fluid retention due to heart failure, but rather 3rd spacing. Albumin administered yesterday post thoracentesis. Some improvement of LE swelling this morning. Recirculating the stagnant fluid in lower extremities may improve low blood pressure readings. reports they have been holding his torsemide since the last hospital admission due to KELSY. - Consider compression socks for reduction of 3rd spacing Admission and Anticipated Discharge Date Admission Date: July 31, 2024 Ese Gordon is a 59M with a history of multiple myeloma, HFpEF, HTN, DANIEL who presented with SOB with exertion, chest pain. He is s/p unilateral thoracentesis + albumin administration. This morning, Randy reports he is doing well. He reports no chest pain this morning and decreased shortness of breath with ambulation compared to yesterday. Denies pain at thoracentesis site. His is concerned about his recent decreased oral intake and states she has tried to encourage him to eat so that he has adequate nutrition for his chemotherapy sessions, but he reports he is often full after 1-2 bites and does not have much of an appetite. His appetite has increased somewhat and he was able to eat 100% of his dinner last night and was hoping to have breakfast this morning. He endorses significant diarrhea post acyclovir administration last night and reports he prefers to be on valacyclovir due to this side effect. Randy reports improvement of swelling in lower extremities. He is able to wear cr ocs, [place] shoes despite significant bilateral foot and ankle swelling. Recently, his leg "split open" and was weeping due to the degree of fluid retention. Review of Systems Constitutional: No fever, chills, night sweats. Endorses progressive 40 lb weight loss since starting chemotherapy. Eyes: Denies changes in vision. Respiratory: Denies cough, SOB, dyspnea. Cardiovascular: Additional Comments: Denies chest pain. Endorses improvement in LE edema. Gastrointestinal: Endorses diarrhea overnight (as above in HPI). Denies vomiting, diarrhea. Neurologic: Denies confusion. Physical Exam Constitutional: Resting comfortably, in no acute distress. Some temporal wasting. Eyes: PERRL, conjunctivae normal, anicteric sclerae ENMT: external ear and nose normal, oropharynx normal Neck: trachea midline, no thyromegaly Respiratory: Decreased lung sounds in RLL. Bilateral lungs with expiratory wheezes globally. No costal retractions, increased work of breathing. No conversational dyspnea. On room air. Cardiovascular: Regular rate and rhythm. No murmurs, rubs or gallops. 2+ pitting edema in BLE. Peripheral pulses strong and equal bilaterally. Gastrointestinal (Abdomen): Abdomen firm, distended. Normoactive bowel sounds. No abdominal tenderness or guarding. Neurologic: Alert and oriented x4. Moves all 4 extremities equally, spontaneously. No focal neurological deficits. Results & Data Results & Data Vital Signs (Past 12 Hours) Vital Signs Temp Pulse Pulse Resp BP Pulse Ox O2 Del Method 08/01/24 07:53 36.6 C 96 H 20 88/60 L 93 Room Air 08/01/24 03:55 36.4 C L 98 H 20 91/56 L 92 Room Air 07/31/24 23:41 96 H 91/59 L 07/31/24 22:33 36.7 C 97 H 18 88/43 L 93 Room Air 07/31/24 22:03 96 H Laboratory Results 08/01/24 07/31/24 07/31/24 Range/Units 05:49 10:04 07:57 WBC 2.07 L (4.8-10.8) K/ul RBC 3.73 L (4.70-6.10) M/uL Hgb 11.4 L (14.0-18.0) g/dl Hct 33.7 L (42.0-52.0) % MCV 90.3 (80.0-100.0) fL MCH 30.6 (25.0-34.0) pg MCHC 33.8 (32.0-36.0) g/dL RDW Std Deviation 56.1 H (36.4-46.3) fL RDW Coeff of Raul 17.2 H (11.5-14.5) % Plt Count 128 L (130-400) K/uL MPV 12.4 (9.4-12.4) fL Immature Gran % (Auto) 1.0 1.0 % Neut % (Auto) 59.0 62.0 % Lymph % (Auto) 13.0 13.0 % [place] % (Auto) 23.2 20.0 % Eos % (Auto) 1.4 1.5 % Baso % (Auto) 2.4 2.5 % Neut # (Auto) 1.22 L 1.24 L (1.40-6.50) K/uL Lymph # (Auto) 0.27 L 0.26 L (1.20-3.40) K/uL [place] # (Auto) 0.48 0.40 (0.11-0.59) K/uL Eos # (Auto) 0.03 0.03 (0.00-0.50) K/uL Baso # (Auto) 0.05 0.05 (0.00-0.20) K/uL Immature Gran # (Auto) 0.02 0.02 (0.01-0.20) K/uL Toxic Granulation 1+ Dohle Bodies 1+ Polychromasia 1+ Macrocytosis Present Sodium 134 L (136-145) mmol/L Potassium 3.7 (3.5-5.1) mmol/L Chloride 101 (98-107) mmol/L Carbon Dioxide 27 (21-32) mmol/L Anion Gap 6 (3-11) BUN 30 H (6-23) mg/dl Creatinine 1.25 (0.6-1.4) mg/dl Est Cr Clr Drug Dosing 77.8 ml/min eGFR 66.33 BUN/Creatinine Ratio 24.0 H (10-20) Glucose 79 (70-99(Fasting)) mg/dl Calcium 8.0 L (8.6-10.3) mg/dl Troponin I High Sens 111.0 H* (0-20) pg/ml RVP negative Diagnostic Findings Venous Doppler Study 07/31/24 13:04 Clinical History: Swelling Technique: Venous ultrasound evaluation was performed utilizing grayscale, color Doppler and wave form evaluation. Images were also obtained with and without compression Findings: The bilateral common femoral, superficial femoral, popliteal, and visualized calf veins demonstrate normal anechoic lumens with full compressibility. Normal flow is seen on color Doppler images. Expected waveforms were produced with augmentation maneuvers There is a 2.2 x 2 x 0.8 cm right knee Leo's cyst. There is a 3.9 x 2.5 x 1.1 cm left knee Leo's cyst Impression: 1. No evidence of deep venous thrombosis 2. Bilateral Leo cysts Electronically signed by Keagan Wynn 07-31-2024 4:33 PM Chest X-Ray 07/31/24 14:58 XR chest 1V not portable CLINICAL HISTORY: s/p left thora COMPARISON STUDY: 07/25/2024 FINDINGS: Single view chest demonstrates no evidence of a left pneumothorax status post thoracentesis. Small left pleural effusion remains. A moderate right pleural effusion remains. Bilateral compressive atelectasis present. Right basilar infiltrate not excluded. Chronic cardiomegaly and pulmonary vascular engorgement unchanged. IMPRESSION: No pneumothorax. ACT 112: Negative or not required by law. Electronically signed by: Edna Elizondo M.D. 07/31/2024 3:37 PM
--- NOTE | 2024-08-01 14:16 | Ultrasound Report ---
ULTRASOUND-GUIDED RIGHT THORACENTESIS CLINICAL HISTORY: Right pleural effusion PROCEDURE: Procedure and risks were explained. Informed consent was obtained. A final timeout was com pleted. The right posterior thorax was prepped and draped in sterile fashion. 1% lidocaine was utiliz ed for skin anesthesia. Utilizing ultrasound guidance, a 5 Syriac safety centesis catheter was advanced into the right pleura l effusion. Ultrasound images were obtained. A total of 1500 mL of yellow pleural fluid was removed a nd discarded. The catheter was removed and Band-Aid applied. The patient tolerated the procedure well . A chest x-ray will be obtained post procedure. Vital signs will be monitored on the floor. IMPRESSION: Ultrasound-guided right thoracentesis as above. Performed, dictated, and signed by Vamsi Izquierdo PA-C; to be co-signed by Dr. Med Francisco. Electronically signed by: Med Francisco M.D. 08/01/2024 3:00 PM
--- NOTE | 2024-08-01 14:30 | XRay Report ---
XR chest 1V not portable CLINICAL HISTORY: s/p rt thoracentesis COMPARISON STUDY: 07/31/2024 FINDINGS: Single view chest unchanged. Chronic cardiomegaly and pulmonary vascular congestion and sma ll bilateral pleural effusions are redemonstrated. There is no pneumothorax. IMPRESSION: No pneumothorax. ACT 112: Negative or not required by law. Electronically signed by: Edna Elizondo M.D. 08/01/2024 2:29 PM
[2024-08-01] MEDS: ALBUMIN 25% 25 GM/100 ML VIAL IV ONE (14:57)
[2024-08-01 16:10] VITALS: PULSE 92; RESP 16; TEMP 97.7; O2SAT 93
[2024-08-01] MEDS: DIPHENOXYLATE/ATROPINE 2.5/0.025MG TAB PO PRN (17:13)
[2024-08-01 17:24] VITALS: BP 99/60
--- NOTE | 2024-08-01 17:32 | Discharge Summary ---
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 States that after his weekly chemotherapy he generally feels bad for a few days, increased dyspnea/fatigue but usually starts to feel better after 2-3 days. He did feel decent on Wednesday, but Wednesday started to have increased dyspnea with some left sided chest pain that radiates to left ribs. Had trouble sleeping last night, but was able to lay flat without increased dyspnea. Increased LE edema R>L-> largely unchanged, denies calf pain. ED Course Significant for: CXR with B/L pleural effusion. WBC= 2, Hgb= 13.2, CMP unremarkable, Troponin 118-> 111. EKG with NSR no acute ischemic changes per my read. S/p 500mL NSS Principal Diagnosis Bilateral pleural effusions Discharge Exam Constitutional: well-appearing, no acute distress HEENT: NCAT, no conjunctival injection CV: regular rhythm, no murmur appreciated, extremities well-perfused, + LE edema Resp: CTABL, no wheezes/rales/rhonchi appreciated GI: soft, nondistended, nontender, BS normoactive MSK: no gross deformities appreciated Skin: warm, dry, no rash appreciated Neuro: alert, oriented, no focal neurologic deficit appreciated Discharge Data Allergies Allergy/AdvReac Type Severity Reaction Status Date / Time spironolactone Allergy Severe Swelling Verified 07/31/24 10:19 of Lip/Tongue/Throat Consultations 07/31/24 09:55 ED Decision to Admit Stat Ordered Studies 07/31/24 11:00 CT for pulmonary embolism PE [CT angio chest PE protocol] Stat 07/31/24 12:19 IR thoracentesis wo tube US Routine 07/31/24 13:04 US venous duplex leg [US venous doppler LE BI] Urgent 08/01/24 08:56 IR thoracentesis wo tube US Routine Hospital Course (1) Pleural effusion: (2) Dyspnea: (3) Elevated troponin: Plan 59 year old male with a past medical history of of multiple myeloma on chemotherapy weekly on Wednesdays (last one 07/19), 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 #Dyspnea in the setting of Recurrent Pleural Effusions - multiple etiologies-> prior fluid studies have shown educative-> MM on chemo and with history of HFpEF secondary cardiac amyloidosis - CTA without PE, but with increased pleural effusions - Plan for thoracentesis-> albumin post as per heme/onc #HPpEF in the setting of cardiac amyloidosis #LE Edema - last echo 06/30; EF>70% - hold torsemide with borderline low BPs and hypotensive post thoracentesis prior - LE edema R>L -> Venous Doppler pending #Elevated Troponin - EKG without acute ischemic changes - Troponin 118-111 - likely demand ischemia in the setting of worsening pleural effusion - watch on tele #Multiple myeloma - follows with Dr. Mendoza for oncology - WBC= 2 Diet: NPO pending thoracentesis VTE ppx: holding pending thoracentesis Total Time Total Time Spent Total Time Spent (In Minutes): As per attending physician's attestation Discharge Plan Discharge Items Patient Disposition: Home - Self-Care Reason For Visit: DYSPNEA Discharge Diagnosis: Bilateral pleural effusions Activity: Resume your previous activity Non-emergency contact: Primary Care Provider Call non-emergency contact if: your symptoms worsen Follow-up/Referrals: Evan Portillo [Primary Care Provider] - Diet: Regular Addtl Attending Provider Instructions: You were admitted to the hospital for increasing shortness of breath due to fluid build up in your lungs. Each side was drained with a procedure called a thoracentesis. If you start to feel short of breath again, you should come back to the hospital because we will likely need to drain the fluid again. We are going to continue to hold the Bumex, the fluid that is building up is likely more related to cancer and the Bumex may not help to get rid of this fluid. It can also drop your blood pressure. We are also concerned about your total calorie in take. At this time, we are recommending that you consume at least 3555-9824 calories per day to meet your metabolic needs. You may want to focus on more high calorie foods at this time in order to meet this goal. You should track your calories using an tonie to help make sure that you are hitting these goals. On good days work on high protein/fruits/vegetables like the plan the layboy operator laid out, on bad days just work to get to 2000 however you can. You may resume your previous home medications. Please follow up with your PCP in 7 days. Pending Studies at Discharge: No Stand-Alone Forms: My [facility], Smoking Cessation Medications and DC Order Prescriptions: New valacyclovir 500 mg Tablet 500 mg PO BID 30 Days Qty: 60 0RF Continued mirtazapine 15 mg tablet 15 mg PO DAILY Rx Instructions: Per spouse, pt has been taking this pretty consistently but it doesn't seem to be helping with appetite. potassium chloride 20 mEq tablet,ER particles/crystals 20 meq PO DAILY PRN (Reason: When taking Torsemide) Hold Instructions: Resume on 07/03/24. Hold OFF restarting potassium supplement until you see your heart failure doctor, Ms. Yvette Rodriguez PA-C, on Wednesday (07/03/2024), as already scheduled. diphenoxylate-atropine 2.5-0.025 mg tablet 1 tab PO Q6H PRN (Reason: Diarrhea) prochlorperazine maleate 10 mg tablet 10 mg PO Q6H PRN (Reason: Nausea And Vomiting) ondansetron 8 mg tablet,disintegrating 8 mg PO Q8H PRN (Reason: Nausea And Vomiting) omeprazole 20 mg capsule,delayed release(DR/EC) 20 mg PO QAM Held torsemide 100 mg tablet 50 mg PO DAILY PRN (Reason: weight gain, edema, shortness of breath) Qty: 30 3RF Hold Instructions: Until f/u with PCP/oncology Rx Instructions: Can increase to 100 mg as needed for weight gain or swelling. Discontinued acyclovir 400 mg tablet 400 mg PO BID Discharge Orders: Discharge Order (Routine); Ordered 08/01/24 Ordered By: Claudia Fowler Admission Data Admit Date/Time: 07/31/24 10:36 Attending Provider: London Magana Admit Provider: Claudia Fowler Primary Care Provider: Evan Portillo Other Providers: London Magana Other Interventions: Discharge Summary Assessment (RN) Last Done: 08/01/24 17:22 Supervising Physician Co-Signing Physician Notes I personally examined the patient and verified all cotton points of history and exam, discussed case, and agree with decision making with Dr Hi s/p hazel yesterday and today - feeling better breathing feels good wants to go home vitals noted nad somewhat dyspneic but not too severe. no pallor or icterus. neuro without focal deficits. exam otherwise as above. labs, diagnostics noted dyspnea/effusions - related to chronic processes myleoma, cardiac amyloid w dCHF (although without pulmonary edema doubt this is a major player - and due to low BP would continue to hold diuretic), malnutrition -now improved post repeat thoracenteses, stable for home, vigilance for recurrence, outpt f/u, return to hospital if needed - over time w chemo and nutritional support goal would be to have definitive improvement in the situation malnutrition - chronic, appearing to be severe protein uncertain calorie. discussed nutrition plans, nutrition goals. pt discussed with layboy operator as well. otherwise as above
--- NOTE | 2024-08-01 17:45 | Communication Note ---
Date of Service: August 01, 2024 after seeing pt this afternoon, paged to rajni mccann. present - very upset with me for the way i discussed pleural effusions and high probability of re accumulation. noted that my demeanor and approach were terrible and unprofessional. expressed that this approach would risk discouraging her and causing harm. i apologized sincerely and profusely, wanted to explain that my goal in discussing things this way was to prevent the discouragement that patients often have when they're in a norma of treatment that has frequent setbacks - and that the intent was to mitigate the emotional harm that can come from feeling discouraged from something that's likely to happen. she did not want me to offer my explanations for intent so i honored th is desire, apologized sincerely again. offered to see pt again to apologize to him if she felt it would be beneficial for me to talk to him and she noted that she did not feel it would be of benefit.
--- NOTE | 2024-08-01 17:53 | Billing Data ---
Date of Service August 01, 2024 Coding Level of Care Code 58969 IN/OBS DISCH 30 MIN/LESS
[2024-08-01] MEDS ORDERED: valACYclovir HCL 500 MG TABLET PO SCH (21:00)
--- NOTE | 2024-08-03 18:41 | Coding Query ---
CODING QUERY To promote full compliance with coding requirements relating to patient care, provider participation is requested in all cases of dot net architect uncertainty. Please assist us with the question(s) below: Coding Question(s): The medical record reflects the following clinical evidence: Dyspnea in the setting of Recurrent Pleural Effusions - multiple etiologies-> prior fluid studies have shown educative-> MM on chemo and with history of HFpEF secondary cardiac amyloidosis - CTA without PE, but with increased pleural effusions - Plan for thoracentesis-> albumin post as per heme/onc Clinical Indicators: ED Course Significant for: CXR with B/L pleural effusion. WBC 2k, RBC 3.73, PLT 128k. Risk Factor(s): Multiple myeloma on current chemotherapy Treatment: Serial CBC, RD consult, I&O Physician's Response(s): __x__ Malignant Pleural effusion secondary to Multiple myeloma ____ Pleural effusions secondary to CHF ____ Other (Please Specify ) Thank you Vanesa DANIEL
== END 2024-08-01 18:28 | disposition home or self-care (01) | DRG 840 ==
LOC: ED 07:27 → EDINP 10:36 → INTOOBSV 10:36 → EDINP 11:25 → 2W 16:34